=== PATIENT | female | born 1960 | race Caucasian/White ===

== ENCOUNTER 2017-04-30 09:16 | Outpatient (CLI) | payer OTHER | END 2017-04-30 09:17 | disposition home or self-care (01) | LOC: LABBT 09:16 | PROVIDERS: ATTEND Neurological Surgery | DX: Z01.818 Encounter for other preprocedural examination (principal); M54.16 Radiculopathy, lumbar region | CPT/HCPCS: 93005; 93010 ==

== ENCOUNTER 2017-05-05 05:36 | Day surgery (SDC) | payer OTHER ==
[2017-04-30 09:36] VITALS: BMI 31.8
[2017-05-05] MEDS ORDERED: Fentanyl 250 MCG/5 ML VIAL ONE (06:07)
[2017-05-05] MEDS ORDERED: Midazolam HCl 2 mg/2 ml Vial ONE ×2 (06:07→06:32)
[2017-05-05] MEDS ORDERED: Thrombin 5000 UNITS/5 ML VIAL ONE (06:18)
[2017-05-05] MEDS ORDERED: Lidocaine 1% PF 5 ML VIAL ONE (07:01)
[2017-05-05] MEDS ORDERED: Succinylcholine Chloride 20 MG/ML 10 ml SYRINGE FS ONE (07:01)
[2017-05-05] MEDS ORDERED: Propofol 200 MG/20 ML VIAL ONE (07:01)
[2017-05-05] MEDS ORDERED: Glycopyrrolate 0.2 MG/ML 5 ML SYRINGE ONE (07:01)
[2017-05-05] MEDS ORDERED: ePHEDrine/0.9% NaCl/PF SYRINGE 50 mg/10 ml ONE (07:01)
[2017-05-05] MEDS ORDERED: PHENYLEPHRINE-NS 100 MCG/ML 10 ML SYRINGE ONE (07:01)
[2017-05-05] MEDS ORDERED: Albuterol Sulfate 2.5 mg/3 ml Neb NEB PRN (07:33)
[2017-05-05] MEDS ORDERED: Ondansetron HCl/PF 4 MG/2 ML Vial IVP PRN (07:33)
[2017-05-05] MEDS ORDERED: Promethazine HCl 25 MG/ML VIAL SLOW IVP PRN (07:33)
[2017-05-05] MEDS ORDERED: Meperidine HCl/PF 25 MG/ML VIAL SLOW IVP PRN (07:33)
[2017-05-05] MEDS ORDERED: Bupivacaine PF 0.5% 30 ML VIAL ONE (07:37)
[2017-05-05] MEDS ORDERED: Fentanyl 100 MCG/2 ML VIAL ONE ×2 (08:27→08:43)
[2017-05-05] MEDS ORDERED: diphenhydrAMINE HCl 50 MG/ML 1 ML VIAL ONE (09:17)
--- NOTE | 2017-05-05 10:27 | OP ---
DATE OF PROCEDURE: 05/05/2017 SURGEON: Saroj Cartagena MD AUTOMATIC RIVETING MACHINE OPERATOR: Vladimir Christianson PA-C INDICATION: Pain. DIAGNOSIS: Lumbar stenosis. PROCEDURE: L4-5 lumbar decompression. ANESTHESIA: General. TECHNIQUE: The patient was brought into the operating room and placed under general anesthesia. Sh e was flipped from a supine to a prone position on the operating room table. A linear incision was planned over the L4-L5 segment. After prepping and draping and after an appropriate operative pause , the incision was created. Soft tissues were swept away from midline. A self-retaining retractor was placed in the wound for optimal exposure. After confirming the appropriate level with C-arm flu oroscopy, an Adson rongeur was used to remove the spinous process along the inferior aspect of L4 an d the superior aspect of L5. High-speed cutting drill bit was then used to perform a laminectomy to decompress the central canal as well as lateral recesses. After complete decompression, the wound was irrigated. Hemostasis was maintained throughout. The wound was then closed in anatomic layers and a pressure dressing was applied. There were no known procedural complications.
== END 2017-05-05 10:33 | disposition home or self-care (01) ==
LOC: SDC 05:36
PROVIDERS: ATTEND Neurological Surgery
PROC: 00NY0ZZ Release Lumbar Spinal Cord, Open Approach (ICD-10-PCS; principal; 2017-05-05)
DX: M48.061 Spinal stenosis, lumbar region without neurogenic claudication (principal); M54.16 Radiculopathy, lumbar region; F17.200 Nicotine dependence, unspecified, uncomplicated; G47.33 Obstructive sleep apnea (adult) (pediatric); Z79.899 Other long term (current) drug therapy; Z88.4 Allergy status to anesthetic agent; Z88.5 Allergy status to narcotic agent; Z98.51 Tubal ligation status; Z90.49 Acquired absence of other specified parts of digestive tract; Z98.890 Other specified postprocedural states; Z86.19 Personal history of other infectious and parasitic diseases; Z80.9 Family history of malignant neoplasm, unspecified
CPT/HCPCS: 76001; 96374; J1200; J2001; J2250; J2704; J3010; S0020

== ENCOUNTER 2017-06-09 15:39 | Emergency (ER) | payer OTHER ==
--- NOTE | 2017-06-09 16:10 | RAD ---
RIGHT HAND 3 VIEWS: Date: 06/09/17 HISTORY: 56-year-old female with right hand pain following an injury. FINDINGS: No fracture, dislocation, or other acute process. Mild degenerative changes. IMPRESSION: Mild degenerative changes without acute fracture. POS: [facility]
[2017-06-09] MEDS ORDERED: Ketorolac Tromethamine 30 MG/ML VIAL ONE (17:53)
== END 2017-06-09 18:22 | disposition home or self-care (01) ==
LOC: ERS 15:39
DX: S60.221A Contusion of right hand, initial encounter (principal); F31.9 Bipolar disorder, unspecified; F17.210 Nicotine dependence, cigarettes, uncomplicated; I10 Essential (primary) hypertension; W20.8XXA Other cause of strike by thrown, projected or falling object, initial encounter
CPT/HCPCS: 96372; J1885

== ENCOUNTER 2017-08-25 09:45 | Emergency (ER) | payer OTHER ==
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
[2017-08-25] MEDS ORDERED: Ketorolac Tromethamine 30 MG/ML VIAL ONE (13:33)
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
== END 2017-08-25 14:18 | disposition home or self-care (01) ==
LOC: ERS 09:45
DX: M77.01 Medial epicondylitis, right elbow (principal); I10 Essential (primary) hypertension; F31.9 Bipolar disorder, unspecified; F17.210 Nicotine dependence, cigarettes, uncomplicated
CPT/HCPCS: 96372; J1885

== ENCOUNTER 2017-09-05 07:26 | Outpatient (CLI) | payer OTHER ==
--- NOTE | 2017-09-05 12:11 | MRI ---
MRI LUMBAR SPINE WITH AND WITHOUT CONTRAST: Date: 09/05/17 HISTORY: Previous lumbar surgery. Lumbar radiculopathy. Left leg pain. COMPARISON: None. TECHNIQUE: MRI lumbar spine is performed without intravenous Gadolinium administration. Multisequential, multipl eduardo imaging is performed. FINDINGS: There is appropriate T1 marrow signal intensity in the lumbar vertebra. Lumbar spine vertebral body h eight is maintained. There is no fracture. No significant STIR hyperintensity to suggest edema or lig amentous injury. There are Type I Modic changes at the L5-S1 level. There is symmetric signal intensity of the psoas muscles. Appropriate signal intensity of the visuali zed solid organs. Conus medullaris terminates at the inferior aspect of T12. There is no pathologic enhancement of the vertebral bodies. No abnormal enhancement within the thecal sac, including the cauda equina and conus medullaris. T12-L1: Adequate disc hydration. No significant central canal stenosis or foraminal narrowing. L1-L2: Desiccation with mild loss of disc space height. There is a T2 and STIR hyperintensity with associate d enhancement along the right paracentral aspect of the disc space suggesting a small annular fissure . Associated minimal disc bulge. Overall, minimal central canal stenosis. Left and right neural radha lizette are patent. L2-L3: Desiccation with mild loss of disc space height. Generalized disc bulge with a minimal central compon ent. Mild central canal stenosis. Bilaterally, neural foramina are patent. L3-L4: Desiccation with a generalized disc bulge. Minimal posterior element hypertrophy. Mild central canal stenosis. Mild to moderate right and moderate left foraminal narrowing. L4-L5: Posterior decompressive laminectomy defect. Enhancing scar tissue at the laminectomy site. Scar tissu e is noted on the left and right aspect of the thecal sac. Overall, there is mild central canal steno sis. There is a T2 and STIR hyperintensity with associated enhancement along the central aspect of th e disc suggesting a small annular fissure. Moderate bilateral foraminal narrowing. L5-S1: Posterior decompressive laminectomy defect. There is a central, right subarticular disc protrusion. D isc material abuts, but does not obscure the traversing right S1 nerve root. Overall, mild central ca nal stenosis. Moderate to severe bilateral foraminal narrowing. IMPRESSION: 1. Postsurgical changes and degenerative changes of lumbar spine as above. There is mass effect with out obscuration of the traversing right S1 nerve root secondary to disc material. 2. Annular fissures at multiple levels. POS: [facility]
== END 2017-09-05 07:27 | disposition home or self-care (01) ==
LOC: MRI 07:26
PROVIDERS: ATTEND Nurse Practitioner Family
DX: M47.26 Other spondylosis with radiculopathy, lumbar region (principal); Z98.1 Arthrodesis status
CPT/HCPCS: 72158

== ENCOUNTER 2017-09-27 03:58 | Emergency (ER) | payer OTHER ==
[2017-09-27] MEDS ORDERED: Morphine 4 MG/ML VIAL ONE (04:33)
== END 2017-09-27 08:35 | disposition home or self-care (01) ==
LOC: ERS 03:58
DX: M54.12 Radiculopathy, cervical region (principal); I10 Essential (primary) hypertension; F31.9 Bipolar disorder, unspecified; F17.210 Nicotine dependence, cigarettes, uncomplicated
CPT/HCPCS: 93005; 96372; J2270

== ENCOUNTER 2018-01-09 07:04 | Outpatient (CLI) | payer OTHER | END 2018-01-09 07:05 | disposition home or self-care (01) | LOC: BICULT 07:04 | PROVIDERS: ATTEND Internal Medicine Gastroenterology | DX: K59.00 Constipation, unspecified (principal); K21.0 Gastro-esophageal reflux disease with esophagitis; R14.0 Abdominal distension (gaseous); Z86.19 Personal history of other infectious and parasitic diseases; Z86.010 Personal history of colon polyps; Z90.49 Acquired absence of other specified parts of digestive tract | CPT/HCPCS: 76705 ==

== ENCOUNTER 2018-02-10 14:26 | Outpatient (CLI) | payer OTHER | END 2018-02-10 14:27 | disposition home or self-care (01) | LOC: BICCT 14:26 | PROVIDERS: ATTEND Neurological Surgery | DX: M54.16 Radiculopathy, lumbar region (principal); M54.12 Radiculopathy, cervical region; M47.897 Other spondylosis, lumbosacral region; M51.27 Other intervertebral disc displacement, lumbosacral region | CPT/HCPCS: 72131; 72141 ==

== ENCOUNTER 2018-03-02 07:59 | Outpatient (CLI) | payer OTHER ==
--- NOTE | 2018-03-03 06:54 | EKG ---
Test Reason : Blood Pressure : / mmHG Vent. Rate : 085 BPM Atrial Rate : 085 BPM P-R Int : 184 ms QRS Dur : 094 ms QT Int : 396 ms P-R-T Axes : 073 063 063 degrees QTc Int : 471 ms Normal sinus rhythm Incomplete right bundle branch block Cannot rule out Anterior infarct , age undetermined (Doubtful) Abnormal ECG When compared with ECG of 27-SEP-2017 04:14, Minimal criteria for Anterior infarct are now Present Confirmed by LISS OLEARY ([id number]) on 03/03/2018 6:54:14 AM Referred By: ROEL Confirmed By:LISS OLEARY
== END 2018-03-02 08:00 | disposition home or self-care (01) ==
LOC: LABBT 07:59
PROVIDERS: ATTEND Neurological Surgery
DX: Z01.818 Encounter for other preprocedural examination (principal); M51.16 Intervertebral disc disorders with radiculopathy, lumbar region; M54.5 Low back pain
CPT/HCPCS: 93005; 93010

== ENCOUNTER 2018-03-09 05:28 | Day surgery (SDC) | payer OTHER ==
[2018-03-02 08:33] VITALS: BMI 31.5
--- NOTE | 2018-03-09 00:53 | HP ---
HISTORY OF PRESENT ILLNESS: Ms. Macdonald is a 57-year-old woman known to us for previous lumbar decompr ession back at the end of last year 2017, who returns now with recurrence of significant back pain an d bilateral lower extremity S1 and partial L5 pains. She has treated this conservatively for quite s ome time even after recurrence and has reached a point of exaggeration and wishes to move forward wit h surgery. She has a new MRI from [facility] as well as a CAT scan that reveals grade 1 spondyl olisthesis of L5 upon S1 resulting in severe foraminal stenosis bilaterally at L5 that likely fit her symptoms. PAST MEDICAL HISTORY: Includes hypertension, anxiety, gastroesophageal reflux disease, chronic pain. CURRENT MEDICATIONS: Colace, cetirizine, oxcarbazepine, Robaxin, ibuprofen, lisinopril, bupropion, p antoprazole, and chlorpromazine. ALLERGIES: TRAMADOL. PAST SURGICAL HISTORY: Cholecystectomy, appendectomy, tubal ligation, herniorrhaphy, colonicpolypect judson. PHYSICAL EXAMINATION: The patient is alert and oriented x3. She is distressed and in obvious pain. In the exam room, her gait is severely antalgic. Lower extremity motor exam is normal. Bilateral s traight leg raise is positive. ASSESSMENT: Lumbar spondylolisthesis with lumbar radiculopathy. PLAN: Dr. Cartagena met with the patient, reviewed imaging and ultimately advocated for bilateral L5 fac etectomies with instrumentation and fusion at L5-S1. He explained to the patient the risks, benefits , and alternatives of the procedure. The patient expressed understanding and would like to move forw negra with surgery as discussed. I do believe the patient is mentally competent and capable of making medical decisions for herself and we will move forward with surgery as planned. Vladimir Christianson PA-C, dictating under Saroj Cartagena M.D.
[2018-03-09] MEDS ORDERED: Thrombin 5000 UNITS/5 ML VIAL ONE (06:23)
[2018-03-09] MEDS ORDERED: Bupivacaine HCl 0.5%/Epinephrine 1:200,000/PF 30 ml Vial ONE (06:23)
[2018-03-09] MEDS ORDERED: CEFAZOLIN/Water 2 GM/20 ML SYRINGE ONE (06:31)
[2018-03-09] MEDS ORDERED: Ketamine 50 MG/ML VIAL ONE (07:07)
[2018-03-09] MEDS ORDERED: Fentanyl 100 MCG/2 ML VIAL ONE ×3 (07:51→11:07)
[2018-03-09] MEDS ORDERED: HYDROmorphone 2 MG/ML VIAL ONE (10:09)
--- NOTE | 2018-03-09 10:20 | OP ---
DATE OF PROCEDURE: 03/09/2018 SURGEON: Saroj Cartagena M.D. E MERCHANT: Vladimir Christianson PA-C INDICATION: Pain. DIAGNOSES: Lumbar stenosis, lumbar radiculopathy, back pain. PROCEDURE: Reoperation, bilateral L5 facetectomies, bilateral L5-S1 posterolateral instrumented fusi on, placement of allograft, placement of autograft. ANESTHESIA: General. TECHNIQUE: The patient was brought into the operating room and placed under general anesthesia. She was flipped from a supine to prone position on the operating room table. A linear incision was plan alexandra at the location of her prior operative site. After prepping and draping and after an appropriate operative pause, the incision was created. The soft tissues were swept away from midline. Self-ret aining retractors were placed in the wound for optimal exposure. After confirming the appropriate le barbara with C-arm fluoroscopy, we spent an extensive amount of time dissecting through scar secondary to this being a reoperation. As such, a surgical modifier will be applied throughout all CPT codes. A fter identifying the bone defect from the patient's prior operation, additional laminectomy and facet ectomy were performed at the L5-S1 region. After completely decompressing these areas and identifyin g the L5 and S1 pedicle screws were placed with the aid of C-arm fluoroscopy. An intraoperative 3D C T scan was performed to confirm appropriate placement of hardware. Rods were then placed across the screw heads and final tightened. The wound was then irrigated. Hemostasis was maintained throughout . The wound was then closed in anatomic layers and a pressure dressing was applied. There were no k nown procedural complications.
[2018-03-09] MEDS ORDERED: PROPOFOL 200 MG/20 ML VIAL ONE (12:00)
[2018-03-09] MEDS ORDERED: Lidocaine 1% PF 5 ML VIAL ONE (12:00)
[2018-03-09] MEDS ORDERED: Dexamethasone 20 MG/5 ML VIAL ONE (12:00)
[2018-03-09] MEDS ORDERED: Ketorolac Tromethamine 30 MG/ML VIAL ONE (12:00)
[2018-03-09] MEDS ORDERED: Glycopyrrolate 0.2 MG/ML 5 ML SYRINGE ONE (12:00)
[2018-03-09] MEDS ORDERED: Ondansetron HCl/PF 4 MG/2 ML Vial ONE (12:00)
== END 2018-03-09 13:10 | disposition home or self-care (01) ==
LOC: SDC 05:28
PROVIDERS: ATTEND Neurological Surgery
PROC: 01NB0ZZ Release Lumbar Nerve, Open Approach (ICD-10-PCS; principal; 2018-03-09)
PROC: 0SG30J1 Fusion of Lumbosacral Joint with Synthetic Substitute, Posterior Approach, Posterior Column, Open Approach (ICD-10-PCS; principal; 2018-03-09)
DX: M48.061 Spinal stenosis, lumbar region without neurogenic claudication (principal); M54.16 Radiculopathy, lumbar region; M43.16 Spondylolisthesis, lumbar region; M54.12 Radiculopathy, cervical region; I10 Essential (primary) hypertension; F41.9 Anxiety disorder, unspecified; K21.9 Gastro-esophageal reflux disease without esophagitis; F31.9 Bipolar disorder, unspecified; Z79.899 Other long term (current) drug therapy; Z88.5 Allergy status to narcotic agent; Z88.8 Allergy status to other drugs, medicaments and biological substances
CPT/HCPCS: 76001; 96374; C1713; J0670; J1170; J3010

== ENCOUNTER 2018-04-14 10:44 | Emergency (ER) | payer OTHER ==
[2018-04-14] MEDS ORDERED: Morphine 4 MG/ML VIAL ONE (11:27)
--- NOTE | 2018-04-14 12:19 | RAD ---
THREE VIEWS LUMBAR SPINE: Comparison: 04-11-16 History: Pain. FINDINGS: There are bilateral transpedicular screws at L5 and S1. There is no perihardware lucency. There is va cuum disc phenomenon at L5-S1. There is 4 mm anterolisthesis of L5 upon S1. Lumbar spine vertebral body height is maintained. No fracture. IMPRESSION: 1. Grade I anterolisthesis of L5 upon S1. Vacuum disc phenomenon at L5-S1. 2. Uncomplicated lumbar fusion hardware. POS: [facility]
== END 2018-04-14 12:32 | disposition home or self-care (01) ==
LOC: ERS 10:44
DX: M54.5 Low back pain (principal); I10 Essential (primary) hypertension; F31.9 Bipolar disorder, unspecified; F17.210 Nicotine dependence, cigarettes, uncomplicated; Z79.899 Other long term (current) drug therapy
CPT/HCPCS: 72100; 96372; J2270

== ENCOUNTER 2018-05-15 06:23 | Day surgery (SDC) | payer OTHER ==
[2018-05-14 14:18] VITALS: BMI 31.6
--- NOTE | 2018-05-14 22:59 | HP ---
HISTORY OF PRESENT ILLNESS: Ms. Macdonald is a 57-year-old woman known to us for previous lumbar decompr ession in the most recently lumbar fusion who returns now to discuss left-sided C6 pattern of pain th at she has had for some time now and hopes to move forward with some type of surgery to help relieve this. She does have an MRI from [facility] that reveals significant foraminal stenosis bilatera lly at C5-C6 that would match her symptoms quite well. She has treated this in the past with injecti ons, medications, and therapy with limited relief. PAST MEDICAL HISTORY: Hypertension, anxiety, gastroesophageal reflux disease, chronic pain. MEDICATIONS: Colace, cetirizine, carbamazepine, Robaxin, ibuprofen, lisinopril, bupropion, brooke toprazole, . ALLERGIES: TRAMADOL. PAST SURGICAL HISTORY: Cholecystectomy, appendectomy, tubal ligation, herniorrhaphy, colonic polypec deidre, lumbar fusion, and lumbar decompression. PHYSICAL EXAMINATION: The patient is alert and oriented x3. Cervical range of motion limited to the left. ASSESSMENT: Cervical radiculopathy. PLAN: Dr. Cartagena met with the patient, reviewed imaging and advocated for a C5-C6 ACDF. He explained to the patient the risks, benefits, and alternatives of the procedure. The patient expressed unders tanding and would like to move forward with surgery as discussed. I do believe the patient is mental ly competent and capable of making medical decisions for herself and we will move forward with surger y as planned. Vladimir Christianson PA-C, dictating for Saroj Cartagena M.D.
[2018-05-15] MEDS ORDERED: Thrombin 5000 UNITS/5 ML VIAL ONE (08:11)
[2018-05-15] MEDS ORDERED: CEFAZOLIN/Water 2 GM/20 ML SYRINGE ONE ×2 (08:17→10:52)
[2018-05-15] MEDS ORDERED: Midazolam HCl 2 mg/2 ml Vial ONE (08:18)
[2018-05-15] MEDS ORDERED: Fentanyl 100 MCG/2 ML VIAL ONE (08:25)
[2018-05-15] MEDS ORDERED: HYDROcodone/Acetaminophen 5/325 mg Tablet ONE (10:52)
--- NOTE | 2018-05-15 11:38 | OP ---
DATE OF PROCEDURE: 05/15/2018 SURGEON: Saroj Cartagena M.D. PLUMBING INSTALLER: Vladimir Christianson PA-C. INDICATION: Pain. DIAGNOSIS: Cervical radiculopathy. PROCEDURE: Anterior cervical discectomy and fusion, C5-6. ANESTHESIA: General. TECHNIQUE: The patient was brought into the operating room and placed under general anesthesia. She was placed on the table in a supine position. A transverse incision was planned over the lateral as pect of the neck on the right. After prepping and draping and after an appropriate operative pause, the incision was created. The underlying platysma muscles identified and incised. A blunt tissue pl ane anterior to the sternocleidomastoid muscle was used to gain access to the prevertebral space. Se lf-retaining retractors were placed in the wound for optimal exposure. After confirming the appropri ate level with C-arm fluoroscopy, an annulotomy was performed in the C5-6 disk space. All disk mater ial as well as anterior and posterior osteophytes were removed. After complete decompression, a 6 mm lordotic PEEK cage packed with allograft and autograft material was placed in the interbody space. An anterior cervical plate was then fashioned in front of the spine and secured with a total of 4 fix ed screws. Midline and lateral structures were inspected and found to be free from significant traum a. The wound was irrigated. Hemostasis was maintained throughout. The wound was then closed in elda tomic layers and a pressure dressing was applied. There were no known procedural complications.
[2018-05-15] MEDS ORDERED: Glycopyrrolate 0.2 MG/ML 5 ML SYRINGE ONE (13:23)
[2018-05-15] MEDS ORDERED: ePHEDrine/0.9% NaCl/PF SYRINGE 50 mg/10 ml ONE (13:23)
[2018-05-15] MEDS ORDERED: PHENYLEPHRINE-NS 100 MCG/ML 10 ML SYRINGE ONE (13:23)
[2018-05-15] MEDS ORDERED: Dexamethasone 20 MG/5 ML VIAL ONE (13:23)
[2018-05-15] MEDS ORDERED: Ondansetron PF 4 MG/2 ML Vial ONE (13:23)
[2018-05-15] MEDS ORDERED: Lidocaine 1% PF 5 ML VIAL ONE (13:23)
[2018-05-15] MEDS ORDERED: PROPOFOL 200 MG/20 ML VIAL ONE (13:23)
== END 2018-05-15 11:15 | disposition home or self-care (01) ==
LOC: SDC 06:23
PROVIDERS: ATTEND Neurological Surgery
PROC: 0RG10A0 Fusion of Cervical Vertebral Joint with Interbody Fusion Device, Anterior Approach, Anterior Column, Open Approach (ICD-10-PCS; principal; 2018-05-15)
PROC: 0RT30ZZ Resection of Cervical Vertebral Disc, Open Approach (ICD-10-PCS; principal; 2018-05-15)
DX: M54.12 Radiculopathy, cervical region (principal); M48.02 Spinal stenosis, cervical region; I10 Essential (primary) hypertension; F41.9 Anxiety disorder, unspecified; K21.9 Gastro-esophageal reflux disease without esophagitis; Z79.899 Other long term (current) drug therapy; Z88.8 Allergy status to other drugs, medicaments and biological substances; Z98.1 Arthrodesis status; Z98.890 Other specified postprocedural states
CPT/HCPCS: 76001; C1713; C1776; J2250; J3010

== ENCOUNTER 2018-05-20 11:10 | Emergency (ER) | payer OTHER ==
[2018-05-20] MEDS ORDERED: Morphine 10 MG/ML VIAL ONE (12:02)
== END 2018-05-20 13:03 | disposition home or self-care (01) ==
LOC: ERS 11:10
DX: G89.18 Other acute postprocedural pain (principal); M19.90 Unspecified osteoarthritis, unspecified site; I10 Essential (primary) hypertension; F31.9 Bipolar disorder, unspecified; F17.210 Nicotine dependence, cigarettes, uncomplicated; Z79.899 Other long term (current) drug therapy; Z79.1 Long term (current) use of non-steroidal anti-inflammatories (NSAID)
CPT/HCPCS: 96372; J2270

== ENCOUNTER 2018-06-12 07:52 | Emergency (ER) | payer OTHER ==
[2018-06-12 08:42] LABS: Bilirubin Negative (Negative); Blood, Urine Moderate (Negative); Clarity CLOUDY (Clear); Glucose, Urine (Dipstick) Negative (Negative); Leukocyte Large (Negative); Nitrite Positive (Negative); Protein, Urine (Dipstick) 30 mg/dL (Neg-Trace); Specific Gravity, Urine 1.018 (1.002-1.036); Urobilinogen 0.2 mg/dL (0.2-1.0)
[2018-06-12 08:44] LABS: Bacteria/HPF 4+ HPF (None Seen); Hyaline Casts/LPF 0-3 HYALINE CAST LPF (0-3 Hyaline); Pathc Cast-AUWi Flag 0.72 (0-2.49); Yeast-AUWi Flag 23.9 (0-25.0)
[2018-06-12 08:48] LABS: #Basophils 0.1 thou/uL (0.0-0.2); #Eosinphils 0.3 thou/uL (0.0-0.7); #Lymphocytes 2.4 thou/uL (1.20-3.40); #Monocytes 0.8 thou/uL (0.11-0.59); #Neutrophils 6.6 thou/uL (1.40-6.50); %Eosinophils 2.5 % (0.0-10.0); %Lymphocytes 23.7 % (21.0-51.0); %Monocytes 8.1 % (0.0-10.0); %Neutrophils 64.8 % (42.0-75.0); Hemoglobin 16.2 g/dL (12.0-16.0); Mean Corpuscular HGB CONC 32.5 g/dL (32.0-36.0); Mean Corpuscular Hemoglobin 31.1 pg (27.0-31.0); Mean Corpuscular Volume 95.7 fL (78.0-98.0); Mean Platelet Volume 5.9 fL (7.4-10.4); Platelet Count 448 thou/uL (130-400); RBC Distribution Width 12.7 % (11.5-14.5); Red Blood Cell (RBC) Count 5.23 mill/uL (4.20-5.40); White Blood Cell (WBC) Count 10.2 thou/uL (4.8-10.8)
[2018-06-12 09:10] LABS: ALT (SGPT) 10 U/L (8-55); AST (SGOT) 12 U/L (5-34); Alkaline Phosphatase 105 U/L (40-150); Anion Gap 14 mmol/L (10-20); BUN (Urea Nitrogen) 13 mg/dL (9.8-20.1); Bilirubin, Total 0.3 mg/dL (0.2-1.2); Calc. Creatinine Clearance 0 mL/min (70-130); Carbon Dioxide 22 mmol/L (22-29); Chloride 104 mmol/L (98-107); Estimated GFR-MDRD 87; Globulin 3.8 g/dL (2.4-3.5); Glucose 111 mg/dL (70-105); Potassium 4.2 mmol/L (3.5-5.1); Protein, Total 7.8 g/dL (6.0-8.3); Sodium 136 mmol/L (136-145)
[2018-06-12] MEDS ORDERED: Ketorolac Tromethamine 60 MG/2 ML VIAL ONE (09:22)
[2018-06-12] MEDS ORDERED: Lidocaine 1% PF 5 ML VIAL ONE (09:22)
[2018-06-12] MEDS ORDERED: cefTRIAXone\\ROCEPHIN 1 GM VIAL ONE (09:22)
== END 2018-06-12 09:51 | disposition home or self-care (01) ==
LOC: ERS 07:52 → EEVIPCON 07:52 → ERS 09:51
DX: N39.0 Urinary tract infection, site not specified (principal); I10 Essential (primary) hypertension; F17.210 Nicotine dependence, cigarettes, uncomplicated; Z79.899 Other long term (current) drug therapy
CPT/HCPCS: 36415; 80053; 81003; 81015; 85025; 96372; J0696; J1885; J2001

== ENCOUNTER 2018-07-02 11:01 | Outpatient (CLI) | payer OTHER ==
--- NOTE | 2018-07-02 12:30 | RAD ---
CERVICAL SPINE 3 VIEWS: HISTORY: Followup cervical surgery. FINDINGS: Anterior fusion procedure changes noted. There is an anterior plate and screw transfixing C5-6 with interbody implant. There is a slight posterior subluxation of C5 on C6 measured at 2-3 mm. There is loss of disk space at C6-7 with degenerative change present at this level. The disk spaces above C5 are maintained. IMPRESSION: Postoperative changes at C5-6 and degenerative changes at C6-7 as noted. POS: [facility]
== END 2018-07-02 11:02 | disposition home or self-care (01) ==
LOC: TBSIIMAG 11:01
PROVIDERS: ATTEND Neurological Surgery
DX: M47.22 Other spondylosis with radiculopathy, cervical region (principal); Z98.1 Arthrodesis status
CPT/HCPCS: 72040

== ENCOUNTER 2019-01-23 08:57 | Emergency (ER) | payer OTHER ==
[2019-01-23] MEDS ORDERED: Acetaminophen 325 MG TAB ONE (09:28)
[2019-01-23] MEDS ORDERED: Ketorolac Tromethamine 30 MG/ML VIAL ONE (09:28)
[2019-01-23] MEDS ORDERED: HYDROcodone/Acetaminophen 5/325 mg Tablet ONE (09:43)
== END 2019-01-23 10:20 | disposition home or self-care (01) ==
LOC: ERS 08:57
DX: M54.5 Low back pain (principal); M19.90 Unspecified osteoarthritis, unspecified site; I10 Essential (primary) hypertension; F31.9 Bipolar disorder, unspecified; Z79.891 Long term (current) use of opiate analgesic; Z79.1 Long term (current) use of non-steroidal anti-inflammatories (NSAID); Z79.899 Other long term (current) drug therapy
CPT/HCPCS: 96372; 99283; J1885

== ENCOUNTER 2019-05-04 09:26 | Emergency (ER) | payer OTHER ==
[2019-05-04] MEDS ORDERED: Ketorolac Tromethamine 30 MG/ML VIAL ONE (10:55)
== END 2019-05-04 11:03 | disposition home or self-care (01) ==
LOC: ERS 09:26
DX: S39.012A Strain of muscle, fascia and tendon of lower back, initial encounter (principal); M19.90 Unspecified osteoarthritis, unspecified site; I10 Essential (primary) hypertension; F31.9 Bipolar disorder, unspecified; F17.210 Nicotine dependence, cigarettes, uncomplicated; Z79.899 Other long term (current) drug therapy; Z76.5 Malingerer [conscious simulation]; X50.9XXA Other and unspecified overexertion or strenuous movements or postures, initial encounter
CPT/HCPCS: 96372; 99283; J1885

== ENCOUNTER 2019-06-19 08:46 | Emergency (ER) | payer OTHER ==
[2019-06-19] MEDS ORDERED: predniSONE 20 MG TAB ONE (09:11)
[2019-06-19] MEDS ORDERED: Ketorolac Tromethamine 30 MG/ML VIAL ONE (09:12)
== END 2019-06-19 09:24 | disposition home or self-care (01) ==
LOC: ERS 08:46
DX: M54.32 Sciatica, left side (principal); I10 Essential (primary) hypertension; M19.90 Unspecified osteoarthritis, unspecified site; F17.210 Nicotine dependence, cigarettes, uncomplicated; Z79.899 Other long term (current) drug therapy
CPT/HCPCS: 96372; 99283; J1885; J7512

== ENCOUNTER 2019-07-28 13:06 | Outpatient (CLI) | payer OTHER ==
--- NOTE | 2019-07-28 15:02 | CT ---
CT LUMBAR SPINE WITHOUT CONTRAST: HISTORY: Low back pain with pain radiating down the left leg to the knee. COMPARISON: None. FINDINGS: Five lumbar type vertebrae. Lumbar spine vertebral body height is maintained. No acute fracture. Ther e appears to be an old fracture involving the posterior right aspect of the L5 vertebral body with the fracture extending into the right lamina. Sclerosis implies a chronic process. The visualized sacrum and bony pelvis are unremarkable. The gallbladder is surgically absent. The visualized solid organs are grossly unremarkable. Atherosclerosis of a nonaneurysmal aorta. No retroperitoneal mass, lymphadenopathy or hematoma. Unremarkable paraspinal muscles with symmetric attenuation. Bilateral transpedicular screws at L5 and S1. No perihardware lucency. SPONDYLOLISTHESIS: L4-L5: 2.2 mm of retrolisthesis. L5-S1: Bilateral pars defects at L5. 7.3 mm of anterolisthesis of L5 upon S1. Limited evaluation of t he contents of the central spinal canal and neural foramina due to technique. T12-L1: No significant central canal stenosis or significant neural foraminal narrowing. L1-L2: Broad-based disc bulge with mild central canal stenosis. Bilaterally the neural foramina are p atent. L2-L3: Broad-based disc bulge results in mild central canal stenosis. Bilaterally the neural foramina are patent. L3-L4: Vacuum disc phenomenon. Broad-based disc bulge. Posterior element hypertrophy result in modera te central canal stenosis. Right neural foramen is mildly narrowed due to disc material. Moderate to severe left foraminal narrowing predominantly due to disc material. The foraminal left L3 nerve ro ot is nearly obscured. L4-L5: Posterior laminectomy defect. Limited evaluation due to beam attenuation artifact. There appea rs to be vacuum disc phenomenon with broad-based disc bulge. At least mild central canal stenosis is suspected. Moderate to severe bilateral foraminal narrowing due to disc material and to lesser ext ent posterior element hypertrophy. L5-S1: Disc desiccation with severe loss of disc space height. Broad-based disc bulge abuts the theca l sac. Disc material appears to encroach upon both subarticular zones with presumed mass effect upon bilateral traversing S1 nerve roots. Mild right and mild to moderate left foraminal narrowing. IMPRESSION 1. Lumbar fusion at L5-S1. There is grade 1 anterolisthesis of L5 upon S1 due to bilateral pars defec ts. 2. Varying degrees of significant central canal stenosis and neural foraminal narrowing as detailed a malaika. 3. Remote fracture along the posterior right aspect of the L5 vertebral body with extension into the right pedicle. Incomplete healing and slightly less than expected sclerosis likely due to persistent motion at the fracture site. Transcribed Date/Time: 07/28/2019 4:02 PM
== END 2019-07-28 13:07 | disposition home or self-care (01) ==
LOC: BICCT 13:06
PROVIDERS: ATTEND Registered Nurse
DX: M53.3 Sacrococcygeal disorders, not elsewhere classified (principal); M15.0 Primary generalized (osteo)arthritis; M43.17 Spondylolisthesis, lumbosacral region; M48.061 Spinal stenosis, lumbar region without neurogenic claudication; M48.07 Spinal stenosis, lumbosacral region; Z98.1 Arthrodesis status
CPT/HCPCS: 72131

== ENCOUNTER 2019-08-13 11:19 | Emergency (ER) | payer OTHER ==
[~2019-08-13 11:19] MED LIST: Iopamidol-370 76% 500 ML 1 ML ONE
[2019-08-13 13:11] LABS: Hemoglobin 15.7 g/dL (12.0-16.0); Mean Corpuscular HGB CONC 32.4 g/dL (32.0-36.0); Mean Corpuscular Hemoglobin 32.2 pg (27.0-31.0); Mean Corpuscular Volume 99.2 fL (78.0-98.0); Mean Platelet Volume 6.2 fL (7.4-10.4); Platelet Count 351 thou/uL (130-400); RBC Distribution Width 12.6 % (11.5-14.5)
[2019-08-13 13:14] LABS: #Basophils 0.1 thou/uL (0.0-0.2); #Eosinphils 0.2 thou/uL (0.0-0.7); #Lymphocytes 2.2 thou/uL (1.20-3.40); #Monocytes 0.6 thou/uL (0.11-0.59); #Neutrophils 5.3 thou/uL (1.40-6.50); %Eosinophils 2.3 % (0.0-10.0); %Lymphocytes 26.4 % (21.0-51.0); %Monocytes 7.4 % (0.0-10.0); %Neutrophils 62.8 % (42.0-75.0); White Blood Cell (WBC) Count 8.4 thou/uL (4.8-10.8)
[2019-08-13 13:32] LABS: ALT (SGPT) 17 U/L (8-55); AST (SGOT) 21 U/L (5-34); Albumin 4.1 g/dL (3.5-5.0); Alkaline Phosphatase 101 U/L (40-110); Anion Gap 12 mmol/L (10-20); BUN (Urea Nitrogen) 14 mg/dL (9.8-20.1); Bilirubin, Total 0.4 mg/dL (0.2-1.2); Calc. Creatinine Clearance 0 mL/min (70-130); Calcium 10.1 mg/dL (7.8-10.44); Carbon Dioxide 27 mmol/L (22-29); Chloride 103 mmol/L (98-107); Estimated GFR-MDRD 86; Globulin 3.6 g/dL (2.4-3.5); Glucose 112 mg/dL (70-105); Potassium 4.6 mmol/L (3.5-5.1); Protein, Total 7.7 g/dL (6.0-8.3); Sodium 137 mmol/L (136-145)
--- NOTE | 2019-08-13 13:55 | CT ---
Exam: Postcontrast soft tissue neck CT HISTORY: Left neck swelling, progressively worsening. COMPARISON: None FINDINGS: Visualized brain parenchyma: No abnormal enhancement Orbits: Visualized orbits are unremarkable. Visualized globes are intact. Symmetric attenuation the o ptic nerves and ocular rectus muscles Paranasal sinuses: Adequate aeration Aerodigestive tract: Patent. No obvious masses in the oral cavity. Midline fatty raphae of the tongue preserved. Epiglottis has a normal caliber. Preepiglottic fat is preserved Larynx: The supraglottic, glottic and subglottic larynx of appropriate mucosal appearance. No evidenc e of stenosis. Paraspinal muscles: Symmetric attenuation of the cleidomastoid muscles and paraspinal muscles Cervical spine: Cervical fusion at C5-C6. No perihardware lucency. Varying degrees of central canal s tenosis and neural foraminal narrowing due to degenerative change. Technique limits evaluation. Symmetric attenuation of the parotid and submandibular glands. Enlarged heterogeneous nodule in the r ight thyroid lobe, measuring 1.3 x 1.3 cm. Grossly the great vessels of the neck are patent Mediastinum: Multiple enlarged and necrotic AP window and prevascular lymph nodes. [facility] pre vascular lymph node measures 1.9 x 2.7 cm. Additional necrotic lymph nodes are noted in the visualized upper mediastinum LUNGS: There are patchy nodular densities in the visualized lung parenchyma, worse for atypical infec tion. Bilateral apical emphysematous changes are noted. Neck lymph nodes: No significant lymphadenopathy in the right neck. There are multiple enlarged left level 4 and supraclavicular lymph nodes. [facility] left level 4 lymph nodes measure 2.2 x 2.4 and 2.6 x 2.4 cm. Enlarged, necrotic left periclavicular lymph nodes measure 3.2 x 2.2 cm. Additional . Left clavicular lymph nodes, measuring 4.3 x 2.4 cm. IMPRESSION: 1.Multiple enlarged necrotic lymph nodes in the left neck and visualized upper chest. Necrotic lympha denopathy may be reactive changes from an infectious or inflammatory process or possibly due to metastasis disease from an unknown primary. Necrotic lymph nodes in the neck are often associated wit h the squamous cell carcinoma of the aerodigestive tract. 2. Nodularity of the visualized lung parenchyma may be due to atypical infection. Consider postcontra st chest, abdomen, pelvis CT 3. Heterogeneous nodule of the right thyroid lobe, incompletely evaluated. Nonemergent thyroid ultras ound.
[2019-08-13] MEDS ORDERED: Morphine 4 MG/ML VIAL ONE (14:32)
[2019-08-13] MEDS ORDERED: Ondansetron PF 4 MG/2 ML Vial ONE (14:32)
[2019-08-13] MEDS ORDERED: Ketorolac Tromethamine 30 MG/ML VIAL ONE (15:07)
== END 2019-08-13 16:06 | disposition home or self-care (01) ==
LOC: ERS 11:19
DX: I89.8 Other specified noninfective disorders of lymphatic vessels and lymph nodes (principal); I10 Essential (primary) hypertension; M19.90 Unspecified osteoarthritis, unspecified site; F31.9 Bipolar disorder, unspecified; Z87.891 Personal history of nicotine dependence; Z79.899 Other long term (current) drug therapy
CPT/HCPCS: 36415; 70491; 80053; 85025; 96374; J1885; J2270; J2405; Q9967

== ENCOUNTER 2019-08-25 09:04 | Outpatient (CLI) | payer OTHER ==
--- NOTE | 2019-08-25 11:37 | MRI ---
Exam: LUMBAR SPINE MRI WITH AND WITHOUT CONTRAST: DATE: 08/25/2019 COMPARISON: 09/05/2017. HISTORY: Lumbar radiculopathy. CORRELATION: CT lumbar spine 07/28/2019, lumbar spine CT performed at [facility] 02/10/2018. FINDINGS: Appropriate T1 marrow signal intensity of the lumbar vertebra. Lumbar spine vertebral body heights ar e essentially maintained. There is no evidence of an acute fracture. There is irregularity involving the superior and inferior endplate of T12, superior endplate of L1, superior endplate of L2 , superior endplate of L3 likely representing Schmorl's nodes. No significant edema. No retropulsion. There is type I Modic change along the right aspect of the L4-L5 disc space. Spondylolisthesis: There is grade 1 retrolisthesis of L4 upon L5 and grade 1 anterolisthesis of L5 up on S1. Refer to CT report for further detail. Appropriate signal intensity in visualized paraspinal muscles. Appropriate signal intensity of solid organs. Conus medullaris terminates at the T12-L1 disc space. T12-L1: Disc desiccation without significant loss of disc space height. No significant central canal stenosis or neural foraminal narrowing. L1-L2: Disc desiccation with mild loss of disc space height. Minimal right paracentral disc bulge. No significant central canal stenosis or significant neural foraminal narrowing. L2-L3: Disc desiccation with mild loss of disc space height. There is a broad-based disc bulge with a superior and inferior disc extrusion. There is mild to moderate central canal stenosis. Bilaterally, the neural foramina are patent. L3-L4: Disc desiccation with moderate loss of disc space height. Broad-based disc bulge with inferior and superior disc extrusion. Ligament flavum thickening and facet hypertrophy are present. There is moderate central canal stenosis. Mild right neural foraminal narrowing. Moderate left neural radha inal narrowing due to disc material. L4-L5: Posterior laminectomy defect. Broad-based disc bulge abuts the thecal sac. There is mild centr al canal stenosis. Enhancing scar tissue at the laminectomy defect site is redemonstrated. There is a T2 hyperintensity adjacent to the right facet joint, measuring 0.5 x 0.4 cm. There is mass effect u ivette the right aspect of the thecal sac. There is no evidence of associated enhancement. The periphery does demonstrate subtle increased signal intensity on the postcontrast images. Imaging lokesh acteristics are favored to be due to a synovial cyst, not appreciated on the previous examination. Moderate bilateral neural foraminal narrowing. L5-S1: Posterior laminectomy defect. Disc desiccation with moderate to severe loss of disc space heig ht. No significant central canal stenosis. Moderate right and left foraminal narrowing. Enhancing scar tissue at the laminectomy defect site. No significant edema along the posterior right aspect of the L5 vertebral body, just adjacent to the lamina. Imaging features on the current study support the chronic nature of the fracture as reported on the CT examination. IMPRESSION: 1. Lumbar fusion as described above. There are varying degrees of central canal stenosis and neural f oraminal narrowing as detailed above. 2. Spondylolisthesis as detailed above. Transcribed Date/Time: 08/25/2019 11:56 AM
[2019-08-25] MEDS ORDERED: Magnevist 469MG/ML 20 ML VIAL ONE (13:01)
== END 2019-08-25 09:05 | disposition home or self-care (01) ==
LOC: BICMRI 09:04
PROVIDERS: ATTEND Neurological Surgery
DX: M54.16 Radiculopathy, lumbar region (principal); M43.16 Spondylolisthesis, lumbar region; M48.061 Spinal stenosis, lumbar region without neurogenic claudication; Z98.1 Arthrodesis status
CPT/HCPCS: 72158; A9579

== ENCOUNTER 2019-09-11 11:00 | Inpatient (IN) | payer OTHER ==
[2019-09-11] MEDS ORDERED: Iopamidol-370 76% 500 ML 1 ML ONE (11:28)
[2019-09-11 11:41] LABS: #Eosinphils 0.1 thou/uL (0.0-0.7); #Lymphocytes 1.4 thou/uL (1.20-3.40); #Monocytes 0.6 thou/uL (0.11-0.59); %Basophils 0.4 % (0.0-1.0); %Eosinophils 1.3 % (0.0-10.0); %Lymphocytes 15.1 % (21.0-51.0); %Monocytes 6.3 % (0.0-10.0); %Neutrophils 76.8 % (42.0-75.0); Hemoglobin 15.9 g/dL (12.0-16.0); Mean Corpuscular HGB CONC 33.8 g/dL (32.0-36.0); Mean Corpuscular Hemoglobin 34.6 pg (27.0-31.0); Mean Platelet Volume 6.1 fL (7.4-10.4); Platelet Count 404 thou/uL (130-400); RBC Distribution Width 12.5 % (11.5-14.5); Red Blood Cell (RBC) Count 4.58 mill/uL (4.20-5.40); White Blood Cell (WBC) Count 9.2 thou/uL (4.8-10.8)
[2019-09-11 12:02] LABS: Bacteria/HPF None Seen HPF (None Seen); Bilirubin Negative (Negative); Blood, Urine Negative (Negative); Clarity Clear (Clear); Glucose, Urine (Dipstick) Normal (Negative); Leukocyte Negative Leu/uL (Negative); Mucous/LPF 2+ LPF (<2+); Nitrite Negative (Negative); Protein, Urine (Dipstick) 70 mg/dL (Neg-Trace); Urobilinogen 3 mg/dL (Less than 2); WBC/HPF 0-3 HPF (0-3)
[2019-09-11] MEDS ORDERED: Morphine 4 MG/ML VIAL ONE (12:02)
[2019-09-11] MEDS ORDERED: Ondansetron PF 4 MG/2 ML Vial ONE (12:02)
[2019-09-11 12:05] LABS: ALT (SGPT) 22 U/L (8-55); AST (SGOT) 18 U/L (5-34); Albumin 3.4 g/dL (3.5-5.0); Alkaline Phosphatase 97 U/L (40-110); Anion Gap 13 mmol/L (10-20); BUN (Urea Nitrogen) 14 mg/dL (9.8-20.1); Bilirubin, Total 0.4 mg/dL (0.2-1.2); Calc. Creatinine Clearance 0 mL/min (70-130); Calcium 9.2 mg/dL (7.8-10.44); Carbon Dioxide 27 mmol/L (22-29); Chloride 101 mmol/L (98-107); Estimated GFR-MDRD 88; Globulin 3.7 g/dL (2.4-3.5); Glucose 115 mg/dL (70-105); Potassium 4.7 mmol/L (3.5-5.1); Protein, Total 7.1 g/dL (6.0-8.3); Sodium 136 mmol/L (136-145)
--- NOTE | 2019-09-11 12:13 | CT ---
EXAM: Brain CTWithout contrast: HISTORY: Shortness of breath, headache, cough, lung cancer diagnosis COMPARISON: None FINDINGS: No focal mass or midline shift. No intra or extra-axial hemorrhage. Sinuses and mastoids are clear of acute process. IMPRESSION: No mass or bleed or other significant acute intracranial process.
[2019-09-11] MEDS ORDERED: Dexamethasone 10 MG/ML VIAL ONE (12:48)
--- NOTE | 2019-09-11 13:51 | CT ---
CT ANGIOGRAM THORAX WITH IV CONTRAST AND 3-D RECONSTRUCTIONS CLINICAL INDICATION: Portal diagnosis of lung cancer. One-week shortness of breath, headache, and cough. COMPARISON: CTA neck on 08/13/2019 FINDINGS: Pulmonary arteries: No filling defects are seen in the pulmonary arteries to suggest a pulmonary embo bronwyn. Aorta: Minimal vascular calcifications are seen with vascular calcifications seen in the coronary art eries. The thoracic aorta is normal in caliber without evidence of an aortic dissection. Lungs: Small bilateral pleural effusions are present. There are diffuse nodular densities and nodular parenchymal areas of consolidation with larger areas of consolidation seen medial aspect left lower lobe and at the left lung base. There is interstitial thickening seen bilaterally. Given multip le nodular opacities, metastatic disease should be considered. Given associated patchy parenchymal areas of consolidation, superimposed atypical infectious process is also a possibility. Mediastinum: There is bulky lymphadenopathy seen throughout the mediastinum as well as involving each hilar region. Largest prevascular space lymph node measures 3.4 cm x 2.7 cm with additional enlarged lymph nodes seen in the mediastinum and each hilar region. There is lymphadenopathy seen in the supraclavicular as well as at the base of the left neck better visualized on CT neck obtained on 08/13/2019. Thyroid gland: A hypodense nodule is seen in the right lobe of thyroid gland which was also seen on C TA chest on 04/15/2014. Osseous structures: Postsurgical changes lower cervical spine are noted. Mild degenerative changes ar e seen in the spine. There is a remote fracture involving the right posterolateral eighth rib. No suspicious lytic or sclerotic osseous lesions are identified. Chest wall: No abnormality visualized. Upper abdomen: Postcholecystectomy changes are noted. The common duct is dilated measuring 1.5 cm. Th is is more dilated than typically expected, but this is probably attributable to reservoir effect. A calcified granuloma is seen in the spleen. There are postsurgical changes right upper quadrant with evidence of a ventral abdominal wall hernia at the level of postsurgical changes containing fat. This is incompletely imaged. IMPRESSION: 1. Extensive and diffuse nodular densities as well as nodular areas of consolidation seen throughout the lungs bilaterally. Interstitial thickening is also present. Findings are most likely attributable to neoplastic process and extensive metastatic disease. Superimposed atypical infectious process is also a possibility given areas of consolidation especially at each lung base. 2. Small bilateral pleural effusions. 3. Extensive mediastinal and hilar lymphadenopathy with lymphadenopathy at the base of the left neck. While lymphadenopathy can be reactive in origin secondary to infectious process, findings are worrisome for metastatic disease. 4. No CT evidence of a pulmonary embolus. 5. Postcholecystectomy changes. 6. Nodule right lobe of thyroid gland also seen on prior CT exam in 2013. 7. Right anterolateral ventral abdominal wall hernia containing fat.
[2019-09-11] MEDS ORDERED: diphenhydrAMINE 50 MG/ML VIAL ONE (14:19)
[2019-09-11] MEDS ORDERED: Metoclopramide HCl 10 MG/2 ML VIAL ONE (14:19)
[2019-09-11] MEDS ORDERED: Acetaminophen 325 MG TAB PO PRN (16:37)
[2019-09-11] MEDS ORDERED: traMADol HCl 50 MG TAB PO PRN (16:40)
[2019-09-11] MEDS ORDERED: Acetaminophen/Codeine 30-300mg Tablet PO PRN (16:40)
--- NOTE | 2019-09-11 17:12 | CON ---
DATE OF CONSULTATION: 09/11/2019 CONSULTING PHYSICIAN: Ekaterina Gaitan PA-C, nurse practitioner. REASON FOR CONSULTATION: Hypoxemia. HISTORY OF PRESENT ILLNESS: The patient is a 59-year-old female who has been receiving her care at [facility] [place]. A week or so ago, she was diagnosed with metastatic adenocarcinoma. The largest site was a lymph node in the left neck, but a CT shows disseminated nodules in both lungs. She came in today for hypoxemia. She had a CT pulmonary angiogram which was negative for pulmonary emboli, but showed significant tumor burden in both lungs. She has a history of COPD and had seen Dr. Guaman in the past in our office. She has continued to smoke up until about 3 weeks ago when it was suspected that she had a cancer. She presents to the ER today with increasing shortness of breath. She is yet to start chemotherapy. PAST MEDICAL HISTORY: 1. Remarkable for COPD. 2. Bipolar disorder. 3. Hepatitis C. PAST SURGICAL HISTORY: 1. Appendectomy. 2. Left inguinal hernia repair. 3. Open cholecystectomy. 4. Tonsillectomy. 5. Tubal ligation. SOCIAL HISTORY: Former IV drug abuser. She smoked 1 pack a day up until quitting three weeks ago. Does not consume alcohol. MEDICATIONS: Listed on chart. REVIEW OF SYSTEMS: Otherwise negative except for the shortness of breath. PHYSICAL EXAMINATION: VITAL SIGNS: O2 saturation running in the low 90s on 6 L nasal cannula, blood pressure 120/70, respiratory rate 22. GENERAL: She is dyspneic at rest. HEENT: Unremarkable. NECK: She has a large matted area lymph nodes in the left supraclavicular area. CARDIOVASCULAR: S1 and S2 regular. LUNGS: Coarse breath sounds bilaterally. ABDOMEN: Soft. Nontender. EXTREMITIES: No clubbing, cyanosis, or edema. LABORATORY DATA: Sodium 136, potassium 4.7, BUN 14, creatinine 0.7, glucose 115. White blood count 9.2, hematocrit 46.9, and platelet count 404. CT was reviewed. ASSESSMENT: Hypoxemia secondary to overwhelming tumor burden in the lungs for metastatic adenocarcinoma. RECOMMENDATION: Beside supplemental oxygen, there is little that can be done other than treatment of the underlying cancer. I have suggested transfer to her treating oncologist so that she can begin chemotherapy or immunotherapy in a timely fashion. Job ID: [id number]
[2019-09-11 17:26] LABS: Actual Bicarbonate (HCO3a) 30.8 mEq/L (22-28); Base Excess (BEa) 0.4 mEq/L (-2.0 to +3.0); Calcium, Ionized 1.21 mmol/L (1.12-1.30); Carboxyhemoglobin (COHb) 3.6 gm% (0.0-3.0); Hemoglobin (Hb) 15.8 g/dL (12.0-16.0); O2 Tension (PaO2) 70.6 mmHg (80.0-100.0); Potassium - ABG Lab 4.86 mmol/L (3.70-5.30)
[2019-09-11 17:27] LABS: CO2 Tension 76.9 mmHg (35.0-45.0); Puncture Site RR; pH, Arterial 7.22 (7.35-7.45)
--- NOTE | 2019-09-11 17:37 | PDOC.EVN ---
Event Note - Event Note Event Note: Code Green after pt reached room for hypoxia. Discussed with patient re: code status. She was initially DNR but has now changed her mind. Mango wishes to be Full Code. Her son Saroj is surrogate decision maker. Left voicemail for son re: change in status.
--- NOTE | 2019-09-11 17:52 | HP ---
PRIMARY CARE PROVIDER: Dr. Monae Alcantara. CHIEF COMPLAINT: Shortness of breath. HISTORY OF PRESENT ILLNESS: Ms. Macdonald is a pleasant 59-year-old lady, who was seen at [facility] on September 11, 2019. The patient is currently upset. She is able to provide history. Collateral history was also obtained from discussion with the patient's son over the telephone, discussion with emergency room physician and review of medical records. Ms. Macdonald was reportedly diagnosed with lung cancer at [facility] last week. Her son reports that she was supposed to have a PET scan sometime next week. She was also supposed to see a mortarman at [facility]. She reportedly has been less mobile over the last several days. She has been having on and off headaches, son reports that she has a history of chronic migraine headaches. Today, she felt severe shortness of breath. EMS reports that room air oxygen saturation was in the 70s. She was, therefore, brought to the emergency room. In the emergency room, pulmonary embolism was ruled out with CT angiogram of the chest. Oxygen saturations improved after starting oxygen, she is currently at 6 L/minute. She has refused BiPAP therapy. Her case was discussed with mortarman on-call, who recommended transfer to [facility] for continuity of care. However, [facility] declined the transfer because they are currently on diversion. The patient is being admitted to [facility] for further management. She reports headache, but is unable to characterize it further. She denies any fevers or chills. She reports nausea. She denies any abdominal pain. REVIEW OF SYSTEMS: All systems were reviewed and found to be negative except for the pertinent positives mentioned above. PAST MEDICAL HISTORY: Osteoarthritis, hypertension, hepatitis, status post treatment and recently diagnosed lung cancer. PAST SURGICAL HISTORY: Hernia repair, cholecystectomy, back surgery x2, left knee surgery, appendectomy, ectopic surgery, and neck surgery. PSYCHIATRIC HISTORY: Bipolar disorder, type 1. SOCIAL HISTORY: According to the patient's son, she has smoked for several years, but over the last one week, her smoking has decreased and she has been using nicotine patches. She is a recovering alcoholic and recovering drug addict. FAMILY HISTORY: Breast cancer in her sister and emphysema in her mother. CODE STATUS: I discussed her code status. She is DNAR. Her son confirmed code status over the telephone as well. ALLERGIES: LIDOCAINE, LITHIUM CARBONATE, AND ORAL LIDOCAINE SPRAY. CURRENT MEDICATIONS: 1. Amlodipine 5 mg daily. 2. Loratadine 10 mg daily. 3. Lyrica 200 mg daily. 4. Acetaminophen/codeine p.r.n. 5. Aspirin 325 mg tablets, unclear how many she is taking. PHYSICAL EXAMINATION: GENERAL: On examination, Ms. Macdonald is awake and alert, in mild distress, tearful. VITAL SIGNS: Blood pressure is 144/75, pulse 100, respiratory rate 20, and oxygen saturation 95% on 6 L of oxygen. T-max in the emergency room was 99.1 degrees Fahrenheit. EYES: No scleral icterus. No conjunctival pallor. ENT: Moist mucosal membranes. No oropharyngeal erythema or exudates. NECK: Supple and nontender. She has cervical lymphadenopathy. RESPIRATORY: Accessory muscles of breathing are mildly active. Chest wall movements are symmetric bilaterally. She has expiratory wheeze bilaterally. CARDIOVASCULAR: S1 and S2 are heard, regular. Peripheral pulses palpable. ABDOMEN: Soft and nontender. Bowel sounds heard. NEUROLOGIC: Cranial nerves 2 through 12 are intact. MUSCULOSKELETAL: Power is 5/5 in all 4 extremities. SKIN: No rashes. LYMPHATIC: She has cervical and left supraclavicular lymphadenopathy. PSYCHIATRIC: The patient is anxious, tearful, oriented to person, place, and time. LABORATORY DATA: Ms. Macdonald's labs and investigations were reviewed. EKG done by EMS shows normal sinus rhythm, no ST changes to suggest an acute coronary syndrome. Noncontrast CT scan of the brain did not show any mass or bleed or other significant acute intracranial process. CT angiogram of the chest did not show any evidence of pulmonary embolism. She had extensive and diffuse nodular densities as well as nodular areas of consolidation seen throughout the lungs bilaterally. She also had interstitial thickening. Radiologist felt superimposed atypical infectious process is also a possibility, given areas of consolidation especially at each lung base. She also had small bilateral pleural effusions, extensive mediastinal and hilar lymphadenopathy. She had nodule in the right lobe of thyroid gland, also seen on prior CT exam in 2014 and right anterolateral ventral abdominal wall hernia containing fat. She has normal white count, normal hemoglobin, elevated platelet count of 404,000, unremarkable comprehensive metabolic profile, normal lactic acid, and normal troponin-I. Urinalysis is negative for nitrite and leukocyte esterase. ASSESSMENT AND PLAN: Ms. Macdonald is a pleasant 59-year-old lady, who was seen at [facility] on September 11, 2019. Her problem list includes: 1. Shortness of breath: Etiology is unclear, most likely related to metastatic lung cancer. She will be admitted to the hospital for further management. She will be started on bronchodilator nebulizers, scheduled and p.r.n. Vital signs will be checked to ensure her oxygenation is improving. She does have findings of consolidation on CT scan of the chest. However, she does not have fever or leukocytosis, therefore I am holding off on antibiotics at this time. 2. Metastatic lung cancer: Recently diagnosed. She will need to follow up with her oncologist at [facility]. I will obtain her records from [facility] will be obtained, so that we can have a better picture of her diagnosis and overall prognosis. 3. Hypertension: Continue amlodipine once doses clarified, monitor vital signs and titrate antihypertensives as needed. 4. Tobacco abuse: Tobacco cessation counseling, nicotine replacement therapy. 5. Chronic headaches: Trial p.r.n. Toradol, tramadol, and Tylenol No. 3. 6. Acute hypoxic respiratory failure: Management as described above. Many thanks for allowing me to participate in your patient's care. Please feel free to contact me with any questions or concerns. LEVEL OF RISK: Moderate. LEVEL OF COMPLEXITY: Moderate. Job ID: [id number]
[2019-09-11 19:25] VITALS: BMI 29.7
[2019-09-11] MEDS: Nicotine 14 MG PATCH TD SCH (20:42)
[2019-09-11] MEDS: Acetaminophen/Codeine 30-300mg Tablet PO PRN (20:42)
--- NOTE | 2019-09-11 21:56 | PDOC.FMACP ---
Advance Care Planning - Note Participants: patient, family Summary: Advanced Care Planning was discussed. The diagnosis, prognosis and goals of care were discussed. Appropriate forms and documentation to accomplish the goals of care were discussed. All questions were answered. The Palliative Care Team will be engaged to assist with completion of any outstanding forms that are needed. Patient initially wanted to be DNAR, subsequently wanted to be Full Code. Surrogate decision maker is her son Saroj. Time Spent (mins): 20
[2019-09-11] MEDS: Melatonin 3 MG TAB PO PRN (23:35)
[2019-09-12] MEDS: Acetaminophen/Codeine 30-300mg Tablet PO PRN ×3 (04:31→20:30)
[2019-09-12] MEDS: Ketorolac Tromethamine 30 MG/ML VIAL IVP PRN ×3 (04:37→19:20)
[2019-09-12 06:30] LABS: #Monocytes 0.5 thou/uL (0.11-0.59); #Neutrophils 7.2 thou/uL (1.40-6.50); %Basophils 0.4 % (0.0-1.0); %Eosinophils 0.1 % (0.0-10.0); %Lymphocytes 10.8 % (21.0-51.0); %Monocytes 5.9 % (0.0-10.0); %Neutrophils 82.7 % (42.0-75.0); Hemoglobin 14.5 g/dL (12.0-16.0); Mean Corpuscular HGB CONC 32.6 g/dL (32.0-36.0); Mean Corpuscular Hemoglobin 34.1 pg (27.0-31.0); Mean Platelet Volume 6.4 fL (7.4-10.4); Platelet Count 367 thou/uL (130-400); RBC Distribution Width 12.3 % (11.5-14.5); Red Blood Cell (RBC) Count 4.26 mill/uL (4.20-5.40); White Blood Cell (WBC) Count 8.7 thou/uL (4.8-10.8)
[2019-09-12 06:49] LABS: Anion Gap 11 mmol/L (10-20); BUN (Urea Nitrogen) 12 mg/dL (9.8-20.1); Calc. Creatinine Clearance 122 mL/min (70-130); Calcium 9.1 mg/dL (7.8-10.44); Carbon Dioxide 30 mmol/L (22-29); Chloride 99 mmol/L (98-107); Estimated GFR-MDRD Greater than 90; Glucose 135 mg/dL (70-105); Potassium 5.2 mmol/L (3.5-5.1); Sodium 135 mmol/L (136-145)
[2019-09-12] MEDS ORDERED: Prevnar 13-Val Conj/PF 0.5 ML SYRINGE IM ONE (09:00)
[2019-09-12] MEDS ORDERED: Amlodipine 5 MG TAB PO SCH ×2 (09:00)
[2019-09-12] MEDS: Amlodipine 5 MG TAB PO SCH (09:16)
[2019-09-12] MEDS: Enoxaparin Sodium 40 MG/0.4 ML SYRINGE SC SCH (09:17)
[2019-09-12] MEDS: traMADol HCl 50 MG TAB PO PRN ×2 (09:17→17:37)
--- NOTE | 2019-09-12 13:39 | PDOC.MOPN ---
Interval History: Brief note: Patient not on the floor for evaluation, down getting an MRI of the brain. Her LN biopsy at [facility] showed metastatic adenocarcinoma. Still awaiting further records for complete staging. Treatment would depend on extent of disease, PD-L1 and mutational testing on the path, some of which may have already been done at [facility] and need these records to determine potential treatment options. - Vital Signs Vital Signs: Vital Signs (12 hours) Temp Pulse Resp BP BP Pulse Ox 09/12/19 11:46 98.4 F 85 18 117/75 97 09/12/19 09:16 95 128/64 09/12/19 09:07 99.5 F 95 22 H 128/64 96 09/12/19 08:32 97 09/12/19 08:09 97 09/12/19 07:30 92 24 H 09/12/19 03:20 98.7 F 105 H 18 112/64 92 L Weight Weight 167 lb 10.24 oz - Labs Result Diagrams: 09/12/19 06:22 09/12/19 06:22 Lab results: Laboratory Results - last 24 hr 09/12/19 06:22: WBC 8.7, RBC 4.26, Hgb 14.5, Hct 44.6, MCV 105.0 H, MCH 34.1 H, MCHC 32.6, RDW 12.3, Plt Count 367, MPV 6.4 L, Neutrophils % 82.7 H, Lymphocytes % 10.8 L, Monocytes % 5.9, Eosinophils % 0.1, Basophils % 0.4, Neutrophils # 7.2 H, Lymphocytes # 1.0 L, Monocytes # 0.5, Eosinophils # 0.0, Basophils # 0.0 09/12/19 06:22: Sodium 135 L, Potassium 5.2 H, Chloride 99, Carbon Dioxide 30 H , Anion Gap 11, BUN 12, Creatinine 0.61, Estimated GFR (MDRD) Greater than 90, Glucose 135 H, Calcium 9.1 09/11/19 17:20: Specimen Type ARTERIAL, Puncture Site RR, Bicarbonate Actual 30.8 H, ABG pH 7.22 L*, ABG pCO2 76.9 H*, ABG pO2 70.6 L, ABG O2 Sat Calc/Brian 92.7 L, ABG O2 Content 19.8, ABG Base Excess 0.4, ABG Hematocrit 46.0, ABG Hemoglobin 15.8, ABG Oxyhemoglobin 89.1 L, ABG Carboxyhemoglobin 3.6 H, ABG Methemoglobin 0.30, ABG Deoxyhemoglobin 7.0 H, Alf Test POSITIVE, Sodium 136, Potassium 4.86, Chloride 100, Ionized Calcium 1.21, Mode of Support 10L/M SM, Spontaneous Rate 24 09/11/19 17:17: POC Glucose 187 H
[2019-09-12] MEDS ORDERED: Magnevist 469MG/ML 20 ML VIAL ONE (13:52)
--- NOTE | 2019-09-12 13:53 | PDOC.HOSPP ---
- Subjective Encounter Date: 09/12/19 Encounter Time: 07:00 Subjective: Pt seen for followup re: acute hypoxic respiratory failure. c/o ongoing headache. - Objective Vital Signs & Weight: Vital Signs (12 hours) Temp Pulse Resp BP BP Pulse Ox 09/12/19 11:46 98.4 F 85 18 117/75 97 09/12/19 09:16 95 128/64 09/12/19 09:07 99.5 F 95 22 H 128/64 96 09/12/19 08:32 97 09/12/19 08:09 97 09/12/19 07:30 92 24 H 09/12/19 03:20 98.7 F 105 H 18 112/64 92 L Weight Weight 167 lb 10.24 oz Result Diagrams: 09/12/19 06:22 09/12/19 06:22 Additional Labs: Accuchecks 09/11/19 17:17 POC Glucose 187 H Labs and MARs reviewed by me EKG Reviewed by me: Yes (Tele: NSR) Hospitalist ROS - Review of Systems Respiratory: reports: SOB with excertion. denies: cough, dry, shortness of breath, hemoptysis, pleuritic pain, sputum, wheezing Cardiovascular: denies: chest pain, palpitations, orthopnea, paroxysmal noc. dyspnea, edema, light headedness Gastrointestinal: denies: nausea, vomiting, abdominal pain, diarrhea, constipation, melena, hematochezia Genitourinary: denies: dysuria, frequency, incontinence, hematuria, retention Neurological: reports: other (headache). denies: weakness, numbness, incoordination, change in speech, confusion, seizures - Medication Medications: Active Medications Generic Name Dose Route Start Last Admin Trade Name Freq PRN Reason Stop Dose Admin Acetaminophen/Codeine Phosphate 2 tab 09/11/19 16:40 09/12/19 04:31 Tylenol #3 PO 2 tab Q6H PRN Administration Severe Pain (7-10) Albuterol/Ipratropium 3 ml 09/11/19 19:00 09/12/19 07:30 Duoneb NEB 3 ml [id number] TRAVIS Administration Amlodipine Besylate 5 mg 09/12/19 09:00 09/12/19 09:16 Norvasc PO 5 mg QAM TRAVIS Administration Enoxaparin Sodium 40 mg 09/12/19 09:00 09/12/19 09:17 Lovenox SC 40 mg 0900 TRAVIS Administration Ketorolac Tromethamine 15 mg 09/11/19 16:40 09/12/19 10:45 Toradol IVP 09/16/19 16:41 15 mg Q6H PRN Administration Pain Melatonin 3 mg 09/11/19 23:24 09/11/19 23:35 Melatonin PO 3 mg HS PRN Administration Insomnia Nicotine 14 mg 09/11/19 17:00 09/11/19 20:42 Nicoderm Patch TD 14 mg Q24HR TRAVIS Administration Tramadol HCl 100 mg 09/11/19 16:40 09/12/19 09:17 Ultram PO 100 mg Q6H PRN Administration Severe Pain (7-10) - Exam General Appearance: awake alert Eye: anicteric sclera ENT: moist mucosa Neck: supple, symmetric, no JVD, no thyromegaly Heart: RRR, no gallops, no rubs, normal peripheral pulses Respiratory: no rales, no ronchi, normal chest expansion, wheezes Gastrointestinal: soft, non-tender, non-distended, normal bowel sounds Skin: no rashes Psychiatric: normal affect, normal behavior, A&O x 3 Hosp A/P (1) Acute respiratory failure with hypoxia Code(s): J96.01 - ACUTE RESPIRATORY FAILURE WITH HYPOXIA Status: Acute (2) Headache Code(s): R51 - HEADACHE Status: Acute (3) HTN (hypertension) Code(s): I10 - ESSENTIAL (PRIMARY) HYPERTENSION Status: Chronic (4) Tobacco abuse Code(s): Z72.0 - TOBACCO USE Status: Chronic (5) Metastatic primary lung cancer Code(s): C34.90 - MALIGNANT NEOPLASM OF UNSP PART OF UNSP BRONCHUS OR LUNG Status: Chronic - Plan Pt on high-flow oxygen and bronchodilators. MRI brain to r/o mets. Continue nicotine patch. HTN controlled, continue amlodipine. Await records from [facility].
--- NOTE | 2019-09-12 15:04 | MRI ---
EXAM: Brain MRI with and without contrast: HISTORY: Multiple pulmonary nodules, metastasis COMPARISON: None FINDINGS: Multiplanar multisequence MRI examination of the brain is performed. The ventricles are within normal limits of size shape and position. No mass or midline shift. No evidence for intra or extra-axial hemorrhage. No evidence for abnormal restricted diffusion. No evidence for acute infarct. Normal-appearing flow voids are noted. The extracranial soft tissues and calvarial marrow signal appear within normal limits. Very subtle sinus mucosal congestion. No evidence for abnormal contrast enhancement. No evidence for brain metastasis. Considerable motion artifact lowers the sensitivity of this study. IMPRESSION: No significant acute intracranial process. No mass or bleed. No acute infarct.
--- NOTE | 2019-09-12 15:46 | PRG ---
DATE OF SERVICE: 09/12/2019 SUBJECTIVE: The patient has lost questions about her care regarding oncologic issues. OBJECTIVE: VITAL SIGNS: Temperature 98.4, pulse 99, respirations 20, O2 saturation in the mid 90s on 38% high-flow oxygen. HEENT: Unremarkable. NECK: No JVD. LUNGS: Crackles bilaterally. CARDIAC: S1 and S2 regular. ABDOMEN: Soft. EXTREMITIES: No edema. ASSESSMENT: 1. Metastatic adenocarcinoma. 2. Underlying chronic obstructive pulmonary disease from tobacco abuse. PLAN: Again, this patient needs chemotherapy or she will not improve. Hopefully, we can wean her oxygen some. I would not stop her Xanax that she takes as an outpatient. Job ID: [id number]
[2019-09-12] MEDS: Nicotine 14 MG PATCH TD SCH (17:38)
[2019-09-12] MEDS: Melatonin 3 MG TAB PO PRN (20:30)
[2019-09-13] MEDS: Ketorolac Tromethamine 30 MG/ML VIAL IVP PRN ×2 (01:18→07:40)
[2019-09-13] MEDS: traMADol HCl 50 MG TAB PO PRN ×2 (02:04→12:10)
[2019-09-13 04:21] LABS: #Basophils 0.1 thou/uL (0.0-0.2); #Eosinphils 0.2 thou/uL (0.0-0.7); #Lymphocytes 1.9 thou/uL (1.20-3.40); #Neutrophils 10.3 thou/uL (1.40-6.50); %Basophils 0.5 % (0.0-1.0); %Eosinophils 1.7 % (0.0-10.0); %Lymphocytes 13.8 % (21.0-51.0); %Monocytes 7.6 % (0.0-10.0); %Neutrophils 76.5 % (42.0-75.0); Hemoglobin 14.4 g/dL (12.0-16.0); Mean Corpuscular Hemoglobin 34.6 pg (27.0-31.0); Mean Platelet Volume 6.3 fL (7.4-10.4); Platelet Count 373 thou/uL (130-400); RBC Distribution Width 12.3 % (11.5-14.5); Red Blood Cell (RBC) Count 4.16 mill/uL (4.20-5.40); White Blood Cell (WBC) Count 13.5 thou/uL (4.8-10.8)
[2019-09-13 04:43] LABS: Anion Gap 11 mmol/L (10-20); BUN (Urea Nitrogen) 14 mg/dL (9.8-20.1); Calc. Creatinine Clearance 133 mL/min (70-130); Calcium 9.5 mg/dL (7.8-10.44); Carbon Dioxide 33 mmol/L (22-29); Chloride 97 mmol/L (98-107); Estimated GFR-MDRD Greater than 90; Glucose 106 mg/dL (70-105); Potassium 4.9 mmol/L (3.5-5.1); Sodium 136 mmol/L (136-145)
[2019-09-13] MEDS: Acetaminophen/Codeine 30-300mg Tablet PO PRN ×2 (05:50→16:19)
[2019-09-13] MEDS: Enoxaparin Sodium 40 MG/0.4 ML SYRINGE SC SCH (07:38)
[2019-09-13] MEDS: Amlodipine 5 MG TAB PO SCH (07:38)
[2019-09-13] MEDS ORDERED: Dihydroergotamine Mesylate 1 MG/ML AMP SLOW IVP SCH (10:30)
[2019-09-13] MEDS: ALPRAZolam 0.25 MG TAB PO PRN (11:16)
--- NOTE | 2019-09-13 11:27 | PDOC.PALCO ---
Palliative Care Consult - Consult Details Requesting Physician: Dr Olivares Reason for Consult: goals of care, assistance with communication prognosis/ disease, family support Family Members Present: Patient two sisters, Beth and - Pertinent HPI 59 year old female who was recently diagnosed at [facility] one week ago with lung cancer. After diagnosis patient returned to the home setting. She had increasing weakness, shortness of breath and onset of migraine. EMS was called and patient found with poor O2 saturation and anxiety. Was transported to the emergency room [facility] who attempted to transfer to [facility] as that was where patient was initially diagnosed and to follow up, transfer was denied secondary to [facility] being on diversion. Admitted for medical management of shortness of breath, acute hypoxic respiratory failure, hypertension, and recent diagnosis of lung disease. - Pertinent PMH Osteoarthritis, hypertension, hepatitis, recent diagnosis of adenocarcinoma unknown primary site. - Social History Smoking Status: Current every day smoker Smoking: cigarettes Alcohol Use: in recovery Living Situation: independent - Medications MAR Reviewed: Yes - Allergies Allergies/Adverse Reactions: Allergies Allergy/AdvReac Type Severity Reaction Status Date / Time carbamazepine [From Tegretol] Allergy Unknown Verified 09/11/19 19:35 lithium Allergy Unknown Verified 09/11/19 19:35 ORAL LIDOCAINE SPRAY Allergy Unknown "CARBON Uncoded 09/11/19 19:35 MONOXIDE POISONING" - Subjective In distress, anxious, fearful. Labored respirations, pulse regular at 66. Sistermercedes Mcgill at bedside. - ROS Constitutional: weakness Respiratory: shortness of breath, wheezing Cardiology: other (negative for chest pain, palpitations) Gastrointestinal: other (negative for diarrhea, nausea) Musculoskeletal: other (Denies pain) Psychological: anxiety - Objective Vital Signs: Vital Signs - Most Recent Temp Pulse Resp BP Pulse Ox 98.4 F 84 24 H 177/84 H 95 09/13/19 08:00 09/13/19 08:00 09/13/19 08:00 09/13/19 08:00 09/13/19 08:00 Palliative Performance Scale: 80 - Physical Exam Constitutional: ill appearing, mild distress HEENT: EOMI, moist MMs, sclera anicteric Respiratory: labored respirations, tachypnea, wheezing present Cardiovascular: RRR Gastrointestinal: soft, non-tender Genitourinary: continent Musculoskeletal: no cyanosis, no clubbing Neurology: moves all 4 limbs Skin: cap refill <2 seconds Psychiatric: A&O x 3 Deviation from normal: Anxious - Problem List (1) Acute respiratory failure with hypoxia Code(s): J96.01 - ACUTE RESPIRATORY FAILURE WITH HYPOXIA Current Visit: Yes Status: Acute (2) Adenocarcinoma Code(s): C80.1 - MALIGNANT (PRIMARY) NEOPLASM, UNSPECIFIED Current Visit: Yes Status: Acute (3) Headache Code(s): R51 - HEADACHE Current Visit: Yes Status: Acute (4) Palliative care encounter Code(s): Z51.5 - ENCOUNTER FOR PALLIATIVE CARE Current Visit: Yes Status: Acute (5) HTN (hypertension) Code(s): I10 - ESSENTIAL (PRIMARY) HYPERTENSION Current Visit: Yes Status: Chronic (6) Tobacco abuse Code(s): Z72.0 - TOBACCO USE Current Visit: Yes Status: Chronic - Plan/Recommendations Plan: Discussed with Dr Olivares Ordered Clonazepam TID secondary to pronounced anxiety Respiratory to come evaluate patient Medication to be given for Migraine, will educate that it can be given in one hour if not migraine not relieved. Support given to patient, sisters as patient fearful of new diagnosis and shortness of breath increasing her anxious state. Sisters provided recent history of new diagnosis. Discussed short term goal of relieving Migraine, decreasing anxiety. Discussed MPOA, will have Joey Ghosh RN and Yazan Shane follow up. [70] minutes spent on this encounter with >50% of the time in counseling and coordination of care. Thank you for this very appropriate consult.
--- NOTE | 2019-09-13 12:31 | PDOC.HOSPP ---
- Subjective Encounter Date: 09/13/19 Encounter Time: 08:00 Subjective: Pt seen for followup re: hypoxic resp failure. Feels slightly better today. Still has headache. - Objective Vital Signs & Weight: Vital Signs (12 hours) Temp Pulse Resp BP Pulse Ox 09/13/19 11:22 83 20 96 09/13/19 08:00 98.4 F 84 24 H 177/84 H 95 09/13/19 07:55 92 22 H 96 09/13/19 07:38 77 09/13/19 02:03 97.8 F 77 20 140/79 93 L Weight Weight 167 lb 10.24 oz I&O: 09/12/19 09/13/19 09/14/19 06:59 06:59 06:59 Intake Total 685 Output Total 600 Balance 85 Result Diagrams: 09/13/19 04:02 09/13/19 04:02 Additional Labs: Labs and MARs reviewed by me EKG Reviewed by me: Yes (Tele: NSR) Hospitalist ROS - Review of Systems Respiratory: reports: SOB with excertion Cardiovascular: denies: chest pain, palpitations, orthopnea, paroxysmal noc. dyspnea, edema, light headedness Gastrointestinal: denies: nausea, vomiting, abdominal pain, diarrhea, constipation, melena, hematochezia Neurological: reports: other (headache) - Medication Medications: Active Medications Generic Name Dose Route Start Last Admin Trade Name Freq PRN Reason Stop Dose Admin Acetaminophen/Codeine Phosphate 2 tab 09/11/19 16:40 09/13/19 05:50 Tylenol #3 PO 2 tab Q6H PRN Administration Severe Pain (7-10) Albuterol/Ipratropium 3 ml 09/11/19 19:00 09/13/19 07:55 Duoneb NEB 3 ml [id number] TRAVIS Administration Albuterol/Ipratropium 3 ml 09/11/19 16:42 09/13/19 11:22 Duoneb NEB 3 ml Q6H PRN Administration SOB &/or Wheezing Alprazolam 0.25 mg 09/13/19 08:45 09/13/19 11:16 Xanax PO 0.25 mg BIDPRN PRN Administration Anxiety Amlodipine Besylate 5 mg 09/12/19 09:00 09/13/19 07:38 Norvasc PO 5 mg QAM TRAVIS Administration Dihydroergotamine Mesylate 1 mg 09/13/19 10:30 09/13/19 11:58 D.H.E. 45 SLOW IVP 09/13/19 12:30 1 mg NOW TRAVIS Administration Enoxaparin Sodium 40 mg 09/12/19 09:00 09/13/19 07:38 Lovenox SC 40 mg 0900 TRAVIS Administration Ketorolac Tromethamine 15 mg 09/11/19 16:40 09/13/19 07:40 Toradol IVP 09/16/19 16:41 15 mg Q6H PRN Administration Pain Melatonin 3 mg 09/11/19 23:24 09/12/19 20:30 Melatonin PO 3 mg HS PRN Administration Insomnia Nicotine 14 mg 09/11/19 17:00 09/12/19 17:38 Nicoderm Patch TD Not Given Q24HR TRAVIS Tramadol HCl 100 mg 09/11/19 16:40 09/13/19 12:10 Ultram PO 100 mg Q6H PRN Administration Severe Pain (7-10) - Exam General Appearance: awake alert Eye: anicteric sclera ENT: normocephalic atraumatic, no oropharyngeal lesions Neck: supple Heart: RRR, no gallops Respiratory: CTAB Gastrointestinal: soft, non-tender Extremities: no cyanosis Musculoskeletal: no muscle wasting Psychiatric: normal behavior, oriented to person, oriented to place Hosp A/P (1) Acute respiratory failure with hypoxia Code(s): J96.01 - ACUTE RESPIRATORY FAILURE WITH HYPOXIA Status: Acute (2) Headache Code(s): R51 - HEADACHE Status: Acute (3) HTN (hypertension) Code(s): I10 - ESSENTIAL (PRIMARY) HYPERTENSION Status: Chronic (4) Tobacco abuse Code(s): Z72.0 - TOBACCO USE Status: Chronic (5) Metastatic primary lung cancer Code(s): C34.90 - MALIGNANT NEOPLASM OF UNSP PART OF UNSP BRONCHUS OR LUNG Status: Chronic - Plan Continue high-flow oxygen and bronchodilators. MRI brain nil acute, trial IV DHE. On nicotine patch. Continue amlodipine. Transfer to oncology floor.
[2019-09-13] MEDS ORDERED: Bisacodyl 5 MG TAB PO PRN (13:41)
[2019-09-13] MEDS: Ondansetron PF 4 MG/2 ML Vial IVP PRN (15:11)
[2019-09-13] MEDS ORDERED: Metoclopramide HCl 10 MG/2 ML VIAL IVP PRN (15:16)
[2019-09-13] MEDS ORDERED: diphenhydrAMINE 50 MG/ML VIAL IVP PRN (15:18)
[2019-09-13] MEDS ORDERED: Morphine 2 MG/ML SYRINGE SLOW IVP SCH (15:30)
[2019-09-13] MEDS: clonazePAM 1 MG TAB PO SCH ×2 (15:35→20:57)
[2019-09-13] MEDS ORDERED: Metoclopramide HCl 10 MG/2 ML VIAL IVP SCH (15:45)
[2019-09-13] MEDS ORDERED: diphenhydrAMINE 50 MG/ML VIAL IVP SCH (15:45)
--- NOTE | 2019-09-13 15:49 | PRG ---
DATE OF SERVICE: 09/13/2019 SERVICE: Pulmonary Medicine. INTERVAL HISTORY: The patient's base complaint is a little bit of nausea associated with the headache today. There has been increasing in intensity over the last couple of days. She indicated that she has had a headache ever since she got diagnosed with cancer. She also suggest that at [facility], she had an MRI which was negative for any intracranial lesions. She denies any current fevers or chills. Her cough is at baseline. She does not have any hemoptysis. Otherwise, there has been no interval change to her condition. PHYSICAL EXAMINATION: VITAL SIGNS: Afebrile, pulse 90, blood pressure 172/83, respirations 20, and saturation 97% on 37% delivered via high-flow nasal cannula. GENERAL: The patient is awake and alert, in no apparent distress. LUNGS: Good air entry bilaterally. Rhonchi and wheezing are both present. There is a prolonged expiratory phase. HEART: Normal rate, regular. ABDOMEN: Soft. Nontender. Nondistended. Bowel sounds are positive. MUSCULOSKELETAL: No cyanosis or clubbing. There is no pitting in the bilateral lower extremities. NEUROLOGIC: Grossly nonfocal. LABORATORY DATA: WBC 13.5, hemoglobin 14.4, platelets 373,000. PH 7.22, pCO2 of 76, PO2 of 71. Basic metabolic profile is completely unremarkable. Potassium has downtrended. Creatinine 0.56. Urinalysis is unremarkable. MRI of the brain demonstrates no acute intracranial abnormality. CTA of the chest demonstrates multifocal bilateral infiltrates and metastatic lesions. ASSESSMENT: 1. Acute on chronic hypoxic respiratory failure. 2. Chronic obstructive pulmonary disease with acute exacerbation. 3. Adenocarcinoma of the lung, widely metastatic. DISCUSSION AND PLAN: We will continue our supportive care including steroids, antibiotics, nebulized medications. I will give her a brief course of Reglan and Benadryl to see if this helps with her underlying headache. Pulmonary will continue to follow while the patient remains in-house, but at this point, she is not ready for discharge. Job ID: [id number] [facility]
--- NOTE | 2019-09-13 17:36 | PDOC.MOPN ---
Interval History: Patient sedated from benadryl. On high flow o2 - Vital Signs Vital Signs: Vital Signs (12 hours) Temp Pulse Resp BP BP Pulse Ox 09/13/19 16:30 98.7 F 87 20 157/87 H 98 09/13/19 16:00 101 H 22 H 152/92 H 98 09/13/19 13:48 90 20 97 09/13/19 12:00 73 172/83 H 09/13/19 11:22 83 20 96 09/13/19 08:00 98.4 F 84 24 H 177/84 H 95 09/13/19 07:55 92 22 H 96 09/13/19 07:38 77 Weight Weight 167 lb 10.24 oz - Physical Exam General: Mild distress, Other HEENT: Atraumatic, PERRLA, EOMI, Mucous membr. moist/pink Lungs: Other (diminished) Cardiovascular: Regular rate, Normal S1, Normal S2, No murmurs, Gallops, Rubs Abdomen: Normal bowel sounds, Soft, No tenderness, No hepatospenomegaly, No masses Skin: No rashes, No breakdown, No significant lesion Neurological: Other (sleepy) - Labs Result Diagrams: 09/13/19 04:02 09/13/19 04:02 Lab results: Laboratory Results - last 24 hr 09/13/19 04:02: WBC 13.5 H, RBC 4.16 L, Hgb 14.4, Hct 43.7, MCV 105.0 H, MCH 34.6 H, MCHC 33.0, RDW 12.3, Plt Count 373, MPV 6.3 L, Neutrophils % 76.5 H, Lymphocytes % 13.8 L, Monocytes % 7.6, Eosinophils % 1.7, Basophils % 0.5, Neutrophils # 10.3 H, Lymphocytes # 1.9, Monocytes # 1.0 H, Eosinophils # 0.2, Basophils # 0.1 09/13/19 04:02: Sodium 136, Potassium 4.9, Chloride 97 L, Carbon Dioxide 33 H, Anion Gap 11, BUN 14, Creatinine 0.56 L, Estimated GFR (MDRD) Greater than 90, Glucose 106 H, Calcium 9.5 Status: lab reviewed by ri - Pathology Pathology: moderately, differentiated adenocarcinoma, unknown primary immunohistochemical stains pending A/P - Problem (1) Adenocarcinoma Current Visit: Yes Code(s): C80.1 - MALIGNANT (PRIMARY) NEOPLASM, UNSPECIFIED Status: Acute - Plan Plan: review of medical records from [facility] show moderately differentiated adenocarcinoma , unknown primary immunohistochemical stains pending. negative for lymphoma. will discuss with Dr. Hernan Guaman following
[2019-09-13] MEDS: Nicotine 14 MG PATCH TD SCH (17:51)
[2019-09-13 23:22] LABS: Actual Bicarbonate (HCO3a) 39.5 mEq/L (22-28); Base Excess (BEa) 8.4 mEq/L (-2.0 to +3.0); Calcium, Ionized 1.28 mmol/L (1.12-1.30); Carboxyhemoglobin (COHb) 1.9 gm% (0.0-3.0); Hemoglobin (Hb) 15.5 g/dL (12.0-16.0); Potassium - ABG Lab 4.41 mmol/L (3.70-5.30); pH, Arterial 7.27 (7.35-7.45)
[2019-09-13 23:23] LABS: CO2 Tension 88.8 mmHg (35.0-45.0)
[2019-09-13 23:24] LABS: O2 Tension (PaO2) 58.7 mmHg (80.0-100.0); Puncture Site R RADIAL
--- NOTE | 2019-09-13 23:35 | PDOC.EVN ---
Event Note - Event Note Event Note: RN called for AMS with increased somnolence. ABGs done - 02/08/89 Will transfer to [facility] NIPPV
[2019-09-14 03:35] LABS: #Lymphocytes 0.9 thou/uL (1.20-3.40); #Monocytes 0.9 thou/uL (0.11-0.59); #Neutrophils 9.7 thou/uL (1.40-6.50); %Basophils 0.1 % (0.0-1.0); %Eosinophils 0.2 % (0.0-10.0); %Lymphocytes 7.8 % (21.0-51.0); %Monocytes 7.4 % (0.0-10.0); %Neutrophils 84.4 % (42.0-75.0); Hemoglobin 15.2 g/dL (12.0-16.0); Mean Corpuscular HGB CONC 33.2 g/dL (32.0-36.0); Mean Corpuscular Hemoglobin 34.8 pg (27.0-31.0); Mean Platelet Volume 5.9 fL (7.4-10.4); Platelet Count 401 thou/uL (130-400); RBC Distribution Width 12.3 % (11.5-14.5); Red Blood Cell (RBC) Count 4.38 mill/uL (4.20-5.40); White Blood Cell (WBC) Count 11.5 thou/uL (4.8-10.8)
[2019-09-14 03:57] LABS: Anion Gap 13 mmol/L (10-20); BUN (Urea Nitrogen) 12 mg/dL (9.8-20.1); Calc. Creatinine Clearance 135 mL/min (70-130); Calcium 9.4 mg/dL (7.8-10.44); Carbon Dioxide 36 mmol/L (22-29); Chloride 91 mmol/L (98-107); Estimated GFR-MDRD Greater than 90; Glucose 119 mg/dL (70-105); Potassium 5.5 mmol/L (3.5-5.1); Sodium 134 mmol/L (136-145)
--- NOTE | 2019-09-14 08:02 | PDOC.PALPN ---
Palliative Progress Note - Subjective minimally responsive with stimulation. Remains on BiPap, no sedation - Objective Vital Signs: Vital Signs - Most Recent Temp Pulse Resp BP Pulse Ox 98.6 F 96 14 125/75 98 09/14/19 07:00 09/14/19 07:10 09/14/19 07:09 09/13/19 22:02 09/14/19 07:10 - Physical Exam Constitutional: encephalitic, ill appearing HEENT: moist MMs, sclera anicteric Deviation from normal: Bi pap, bilaterally adventicious lung sounds Cardiovascular: RRR Gastrointestinal: soft, positive bowel sounds Deviation from normal: [place] Musculoskeletal: edema present Skin: cap refill <2 seconds Deviation from normal: minimally responsive with extremity movement, does not open eyes. - Assessment (1) Palliative care encounter Code(s): Z51.5 - ENCOUNTER FOR PALLIATIVE CARE Current Visit: Yes Status: Acute (2) Acute respiratory failure with hypoxia Code(s): J96.01 - ACUTE RESPIRATORY FAILURE WITH HYPOXIA Current Visit: Yes Status: Acute (3) Adenocarcinoma Code(s): C80.1 - MALIGNANT (PRIMARY) NEOPLASM, UNSPECIFIED Current Visit: Yes Status: Acute (4) Metastatic primary lung cancer Code(s): C34.90 - MALIGNANT NEOPLASM OF UNSP PART OF UNSP BRONCHUS OR LUNG Current Visit: Yes Status: Chronic - Plan Plan: Discussed with Dr Becerra, waiting on further results that are pending. Was to have PET scan. Adenocarcinoma, significant metastases to lungs. Will support patient and family and address Goals of Care as needed depending on recovery. Visited with patient sisters, emotional support. [50] minutes spent on this encounter with >50% of the time in counseling and coordination of care. - ROS Non Response: due to mental status
--- NOTE | 2019-09-14 08:03 | PDOC.MOPN ---
Interval History: Pt is arousable to touch but not name. She does not answer questions or keep eyes open. SHe is on BiPAP satting 94%. - Vital Signs Vital Signs: Vital Signs (12 hours) Temp Pulse Resp BP Pulse Ox 09/14/19 07:10 96 98 09/14/19 07:09 96 14 98 09/14/19 07:00 98.6 F 09/14/19 04:24 91 15 99 09/14/19 04:00 99.6 F 09/14/19 02:25 100 17 97 09/14/19 02:23 100 09/14/19 01:00 99.7 F H 98 09/14/19 00:48 98 09/14/19 00:00 101 H 18 96 09/13/19 22:02 97.8 F 94 15 125/75 91 L Weight Weight 167 lb 10.24 oz Most Recent Monitor Data Heart Rate from ECG 96 NIBP 124/66 NIBP BP-Mean 83 Respiration from ECG 16 SpO2 97 - Physical Exam General: Mild distress. negative: Alert, Oriented x3 HEENT: Other (left cervical/supraclavicular LAD) Lungs: Clear to auscultation, Other Cardiovascular: Other (tachycardic, 3/6 systolic murmur) Abdomen: Soft, No tenderness Extremities: Other (2+ B/L LE edema) - Labs Result Diagrams: 09/14/19 03:14 09/14/19 03:14 Lab results: Laboratory Results - last 24 hr 09/14/19 03:14: WBC 11.5 H, RBC 4.38, Hgb 15.2, Hct 45.9, MCV 105.0 H, MCH 34.8 H, MCHC 33.2, RDW 12.3, Plt Count 401 H, MPV 5.9 L, Neutrophils % 84.4 H, Lymphocytes % 7.8 L, Monocytes % 7.4, Eosinophils % 0.2, Basophils % 0.1, Neutrophils # 9.7 H, Lymphocytes # 0.9 L, Monocytes # 0.9 H, Eosinophils # 0.0, Basophils # 0.0 09/14/19 03:14: Sodium 134 L, Potassium 5.5 H, Chloride 91 L, Carbon Dioxide 36 H, Anion Gap 13, BUN 12, Creatinine 0.55 L, Estimated GFR (MDRD) Greater than 90, Glucose 119 H, Calcium 9.4, Magnesium 2.0 09/13/19 23:12: Specimen Type ARTERIAL, Puncture Site R RADIAL, Bicarbonate Actual 39.5 H, ABG pH 7.27 L, ABG pCO2 88.8 H*, ABG pO2 58.7 L*, ABG O2 Sat Calc /Brian 88.2 L, ABG O2 Content 18.8, ABG Base Excess 8.4 H, ABG Hematocrit 46.0, ABG Hemoglobin 15.5, ABG Oxyhemoglobin 86.3 L, ABG Carboxyhemoglobin 1.9, ABG Methemoglobin 0.30, ABG Deoxyhemoglobin 11.5 H, Alf Test POSITIVE, A-a O2 Gradient 158.280 H, Sodium 137, Potassium 4.41, Chloride 91 L, Ionized Calcium 1.28, Mode of Support 25L HFNC, Inspired O2 46 09/13/19 20:59: POC Glucose 121 H A/P - Problem (1) Adenocarcinoma Current Visit: Yes Code(s): C80.1 - MALIGNANT (PRIMARY) NEOPLASM, UNSPECIFIED Status: Acute - Plan Plan: cont supportive respiratory care f/u lung mutational panel done at [facility] to determine appropriate treatment, although treatment will only be possible if she clinically improves dramatically.
[2019-09-14] MEDS: Amlodipine 5 MG TAB PO SCH ×2 (11:06→18:06)
[2019-09-14] MEDS: clonazePAM 1 MG TAB PO SCH ×3 (11:06→20:29)
[2019-09-14] MEDS: Enoxaparin Sodium 40 MG/0.4 ML SYRINGE SC SCH (11:08)
[2019-09-14] MEDS ORDERED: Albuterol Sulfate 2.5 mg/3 ml Neb NEB PRN (11:53)
[2019-09-14] MEDS: Ketorolac Tromethamine 30 MG/ML VIAL IVP PRN ×2 (15:18→20:25)
--- NOTE | 2019-09-14 16:28 | PRG ---
DATE OF SERVICE: 09/14/2019 SERVICE: Pulmonary Medicine. INTERVAL HISTORY: The patient continues to have a little bit of ongoing abdominal discomfort. Overnight, she was brought down to the ICU. Apparently, her daughter brought in some home Xanax. The patient took a significant amount of this medication, took a very deep nap. Later on, she was found obtunded and unresponsive. An ABG was consistent with acute hypercapnic failure. The patient indicates that she is having abdominal discomfort currently. Otherwise, there has been no interval change to her condition. PHYSICAL EXAMINATION: VITAL SIGNS: Afebrile currently. T-max overnight 99.7. Pulse 104, blood pressure 151/81, respirations 25, saturation 92%, currently on 3 L nasal cannula. GENERAL: The patient is awake and alert, in no apparent distress. LUNGS: Good air entry bilaterally. There are rhonchi and crackles both present. HEART: Normal rate, regular. ABDOMEN: Soft. Tender to palpation throughout, but there is no rebound or guarding. Bowel sounds are active. MUSCULOSKELETAL: No cyanosis or clubbing. Trace pitting is present. NEUROLOGIC: Grossly nonfocal. LABORATORY DATA: WBC 11.5, hemoglobin 15.2, platelets 41,000. Potassium is uptrending to 5.5. Basic metabolic profile is unremarkable except for a bicarb of 36. Magnesium falls within the normal limits. ASSESSMENT: 1. Acute hypoxic respiratory failure. 2. Chronic obstructive pulmonary disease with acute exacerbation. 3. Adenocarcinoma of the lung, widely metastatic. 4. Metabolic encephalopathy, likely secondary to surreptitious use of home benzodiazepines. DISCUSSION AND PLAN: We will give the Xanax some time to come out of her system. Kayexalate will be provided. We will add a lipase and amylase to morning laboratories to make certain that she does not have inflammation of the pancreas. I am doubtful that this would be the case, however. When she wakes up, she will be considered a candidate for transition out of the ICU back to the Oncology floor. Job ID: [id number] [facility]
[2019-09-14] MEDS: Nicotine 14 MG PATCH TD SCH (17:35)
--- NOTE | 2019-09-14 18:17 | PDOC.HOSPP ---
- Subjective Encounter Date: 09/14/19 Encounter Time: 09:00 Subjective: Pt seen for followup re; acute hypoxic and hypercapnic respiratory failure. Lethargic, not answering questions, could not complete ROS. - Objective Vital Signs & Weight: Vital Signs (12 hours) Temp Pulse Resp BP Pulse Ox 09/14/19 18:06 102 H 151/81 H 09/14/19 16:00 99.5 F 09/14/19 13:30 102 H 26 H 93 L 09/14/19 12:00 98.9 F 09/14/19 11:06 86 09/14/19 11:01 86 09/14/19 10:59 90 16 97 09/14/19 08:00 97 09/14/19 07:10 96 98 09/14/19 07:09 96 14 98 09/14/19 07:00 98.6 F Weight Weight 167 lb 10.24 oz Most Recent Monitor Data Heart Rate from ECG 103 NIBP 151/81 NIBP BP-Mean 102 Respiration from ECG 24 SpO2 94 I&O: 09/13/19 09/14/19 09/15/19 06:59 06:59 06:59 Intake Total 685 100 Output Total 600 0 800 Balance 85 0 -700 Result Diagrams: 09/14/19 03:14 09/14/19 03:14 Additional Labs: Accuchecks 09/13/19 20:59 POC Glucose 121 H Labs and MARs reviewed by me EKG Reviewed by me: Yes (Tele: sinus tachycardia) Hospitalist ROS - Medication Medications: Active Medications Generic Name Dose Route Start Last Admin Trade Name Freq PRN Reason Stop Dose Admin Acetaminophen/Codeine Phosphate 2 tab 09/11/19 16:40 09/13/19 16:19 Tylenol #3 PO 2 tab Q6H PRN Administration Severe Pain (7-10) Albuterol/Ipratropium 3 ml 09/14/19 13:00 09/14/19 13:30 Duoneb NEB 3 ml [id number] TRAVIS Administration Alprazolam 0.25 mg 09/13/19 08:45 09/13/19 11:16 Xanax PO 0.25 mg BIDPRN PRN Administration Anxiety Amlodipine Besylate 5 mg 09/12/19 09:00 09/14/19 18:06 Norvasc PO 5 mg QAM TRAVIS Administration Enoxaparin Sodium 40 mg 09/12/19 09:00 09/14/19 11:08 Lovenox SC 40 mg 0900 TRAVIS Administration Ketorolac Tromethamine 15 mg 09/11/19 16:40 09/14/19 15:18 Toradol IVP 09/16/19 16:41 15 mg Q6H PRN Administration Pain Melatonin 3 mg 09/11/19 23:24 09/12/19 20:30 Melatonin PO 3 mg HS PRN Administration Insomnia Nicotine 14 mg 09/11/19 17:00 09/14/19 17:35 Nicoderm Patch TD 14 mg Q24HR TRAVIS Administration Ondansetron HCl 4 mg 09/11/19 16:37 09/13/19 15:11 Zofran IVP 4 mg Q6H PRN Administration Nausea/Vomiting Sodium Chloride 10 ml 09/13/19 21:00 09/14/19 11:08 Flush - Normal Saline IVF 10 ml Q12HR TRAVIS Administration Tramadol HCl 100 mg 09/11/19 16:40 09/13/19 12:10 Ultram PO 100 mg Q6H PRN Administration Severe Pain (7-10) - Exam Eye: anicteric sclera ENT: moist mucosa Neck: supple Heart - other findings: S1, S2, tachy, reg Respiratory: CTAB Gastrointestinal: soft, non-tender Extremities: no cyanosis Musculoskeletal: no muscle wasting Psychiatric: normal affect, normal behavior Hosp A/P (1) Acute respiratory failure with hypoxia and hypercapnia Code(s): J96.01 - ACUTE RESPIRATORY FAILURE WITH HYPOXIA; J96.02 - ACUTE RESPIRATORY FAILURE WITH HYPERCAPNIA Status: Acute (2) Headache Code(s): R51 - HEADACHE Status: Acute (3) Hyperkalemia Code(s): E87.5 - HYPERKALEMIA Status: Acute (4) HTN (hypertension) Code(s): I10 - ESSENTIAL (PRIMARY) HYPERTENSION Status: Chronic (5) Tobacco abuse Code(s): Z72.0 - TOBACCO USE Status: Chronic (6) Metastatic primary lung cancer Code(s): C34.90 - MALIGNANT NEOPLASM OF UNSP PART OF UNSP BRONCHUS OR LUNG Status: Chronic - Plan Acute respiratory failure suspected to be due to surreptitious use of benzodiazepines. Administer kayexalate and albuterol neb for hyperkalemia. Recheck potassium. Pt is now in CCU on NIPPV. Continue nicotine patch. Continue amlodipine. Transfer to oncology floor.
[2019-09-14] MEDS ORDERED: Albuterol Sulfate 2.5 mg/3 ml Neb NEB SCH (19:00)
[2019-09-14] MEDS: Metoclopramide HCl 10 MG/2 ML VIAL IVP PRN (20:42)
[2019-09-15] MEDS: ALPRAZolam 0.25 MG TAB PO PRN (00:11)
[2019-09-15] MEDS: traMADol HCl 50 MG TAB PO PRN ×2 (00:11→15:42)
--- NOTE | 2019-09-15 00:22 | CON ---
DATE OF CONSULTATION: 09/14/2019 CONSULTING PHYSICIAN: Hospitalist Service. IMPRESSION: 1. Headache. 2. Lung cancer. PLAN: Continue Toradol with the addition of Reglan as needed for pain and nausea. HISTORY OF PRESENT ILLNESS: Ms. Macdonald is a 59-year-old white female with a known history of anxiety and lung cancer. She apparently overdosed on Xanax prior to admission. She was quite obtunded. Nurse reports she has steadily regained consciousness. She complains of some diffuse pain in her head and chest. She is bit difficult to get accurate description of her condition. She was gasping and appearing a bit restless. Her saturations were 92% on nasal cannula. She does not report any cranial tenderness. She denies that there is any vision disturbance. She denies having headaches prior to this and reports that this headache has been present for 2 weeks. She had an MRI of the brain done, which did not show any evidence of metastatic disease. PAST MEDICAL HISTORY: As listed above. ALLERGIES: LIDOCAINE, LITHIUM. SOCIAL HISTORY: Positive for tobacco. FAMILY HISTORY: Noncontributory. REVIEW OF SYSTEMS: Ten-system review of systems is otherwise negative. PHYSICAL EXAMINATION: VITAL SIGNS: Pulse 113, blood pressure of 133/77, sats 94%, respirations 33. HEENT: Pupils are equal and reactive. Conjunctivae clear. Oropharynx clear. Cranium, nontender to palpation. NECK: Supple. NEUROLOGIC: She is awake and would attempt to answer some questions. Her speech appears to be fluent and clear. There is no facial asymmetry. She has equal strength. No abnormal movements were seen. Gait was not tested. IMAGING STUDIES: EKG shows sinus tachycardia. SUMMARY: This is a middle-aged woman with complaints of headache, nothing specific on her imaging or her exam. I would continue nonnarcotic approach given that she has become lethargic with morphine. She could try Tylenol with Codeine as well. Job ID: [id number]
[2019-09-15] MEDS: Ketorolac Tromethamine 30 MG/ML VIAL IVP PRN ×2 (02:17→20:32)
[2019-09-15] MEDS: Amlodipine 5 MG TAB PO SCH (08:20)
[2019-09-15] MEDS: clonazePAM 1 MG TAB PO SCH ×2 (08:20→11:33)
[2019-09-15] MEDS: Enoxaparin Sodium 40 MG/0.4 ML SYRINGE SC SCH (08:21)
--- NOTE | 2019-09-15 15:12 | PDOC.HOSPP ---
- Subjective Encounter Date: 09/15/19 Encounter Time: 10:40 Subjective: Pt seen for followup re; respiratory failure. On BiPAP, not answering questions , could not complete ROS. - Objective Vital Signs & Weight: Vital Signs (12 hours) Temp Pulse Resp BP Pulse Ox 09/15/19 13:20 95 09/15/19 13:18 105 H 25 H 09/15/19 11:10 98.8 F 09/15/19 08:20 90 140/79 09/15/19 08:00 96 09/15/19 07:48 98.2 F 09/15/19 06:44 86 21 H 98 09/15/19 03:37 98.6 F Weight Weight 174 lb 2.643 oz Most Recent Monitor Data Heart Rate from ECG 96 NIBP 128/80 NIBP BP-Mean 96 Respiration from ECG 20 SpO2 95 I&O: 09/14/19 09/15/19 09/16/19 06:59 06:59 06:59 Intake Total 430 Output Total 0 1275 Balance 0 -845 Result Diagrams: 09/14/19 03:14 09/14/19 03:14 Additional Labs: Labs and MARs reviewed by me EKG Reviewed by me: Yes (Tele: NSR) Hospitalist ROS - Medication Medications: Active Medications Generic Name Dose Route Start Last Admin Trade Name Freq PRN Reason Stop Dose Admin Acetaminophen 650 mg 09/11/19 16:37 09/15/19 00:10 Tylenol PO 650 mg Q4H PRN Administration Headache/Fever/Mild Pain (1-3) Acetaminophen/Codeine Phosphate 2 tab 09/11/19 16:40 09/13/19 16:19 Tylenol #3 PO 2 tab Q6H PRN Administration Severe Pain (7-10) Albuterol/Ipratropium 3 ml 09/14/19 13:00 09/15/19 13:18 Duoneb NEB 3 ml [id number] TRAVIS Administration Alprazolam 0.25 mg 09/13/19 08:45 09/15/19 00:11 Xanax PO 0.25 mg BIDPRN PRN Administration Anxiety Amlodipine Besylate 5 mg 09/12/19 09:00 09/15/19 08:20 Norvasc PO 5 mg QAM TRAVIS Administration Clonazepam 1 mg 09/14/19 21:00 09/15/19 11:33 Klonopin PO Not Given TID TRAVIS Enoxaparin Sodium 40 mg 09/12/19 09:00 09/15/19 08:21 Lovenox SC 40 mg 0900 [facility] Administration Ketorolac Tromethamine 15 mg 09/11/19 16:40 09/15/19 02:17 Toradol IVP 09/16/19 16:41 15 mg Q6H PRN Administration Pain Melatonin 3 mg 09/11/19 23:24 09/12/19 20:30 Melatonin PO 3 mg HS PRN Administration Insomnia Metoclopramide HCl 10 mg 09/14/19 18:50 09/14/19 20:42 Reglan IVP 10 mg Q6H PRN Administration HEADACHE OR NAUSEA Nicotine 14 mg 09/11/19 17:00 09/14/19 17:35 Nicoderm Patch TD 14 mg Q24HR TRAVIS Administration Ondansetron HCl 4 mg 09/11/19 16:37 09/13/19 15:11 Zofran IVP 4 mg Q6H PRN Administration Nausea/Vomiting Sodium Chloride 10 ml 09/13/19 21:00 09/15/19 08:21 Flush - Normal Saline IVF 10 ml Q12HR TRAVIS Administration Tramadol HCl 100 mg 09/11/19 16:40 09/15/19 00:11 Ultram PO 100 mg Q6H PRN Administration Severe Pain (7-10) - Exam General - other findings: [place]: anicteric sclera ENT: moist mucosa Neck: supple Heart: RRR Respiratory: CTAB Gastrointestinal: soft, non-tender Extremities: no cyanosis Psychiatric: lethargic Hosp A/P (1) Acute respiratory failure with hypoxia and hypercapnia Code(s): J96.01 - ACUTE RESPIRATORY FAILURE WITH HYPOXIA; J96.02 - ACUTE RESPIRATORY FAILURE WITH HYPERCAPNIA Status: Acute (2) Headache Code(s): R51 - HEADACHE Status: Acute (3) Hyperkalemia Code(s): E87.5 - HYPERKALEMIA Status: Acute (4) HTN (hypertension) Code(s): I10 - ESSENTIAL (PRIMARY) HYPERTENSION Status: Chronic (5) Tobacco abuse Code(s): Z72.0 - TOBACCO USE Status: Chronic (6) Metastatic primary lung cancer Code(s): C34.90 - MALIGNANT NEOPLASM OF UNSP PART OF UNSP BRONCHUS OR LUNG Status: Chronic - Plan Acute respiratory failure improved. Pt used BiPAP last night. Check Chrem-7, BMP Continue nicotine patch. Continue amlodipine. Change clonazepam to PRN. Sister updated over the phone.
[2019-09-15] MEDS: Nicotine 14 MG PATCH TD SCH (15:42)
[2019-09-15 16:19] LABS: #Eosinphils 0.1 thou/uL (0.0-0.7); #Lymphocytes 1.2 thou/uL (1.20-3.40); #Monocytes 0.9 thou/uL (0.11-0.59); #Neutrophils 8.8 thou/uL (1.40-6.50); %Basophils 0.4 % (0.0-1.0); %Eosinophils 1.1 % (0.0-10.0); %Lymphocytes 10.7 % (21.0-51.0); %Monocytes 8.5 % (0.0-10.0); %Neutrophils 79.3 % (42.0-75.0); Hemoglobin 15.3 g/dL (12.0-16.0); Mean Corpuscular HGB CONC 33.4 g/dL (32.0-36.0); Mean Corpuscular Hemoglobin 34.6 pg (27.0-31.0); Platelet Count 336 thou/uL (130-400); RBC Distribution Width 12.4 % (11.5-14.5); Red Blood Cell (RBC) Count 4.42 mill/uL (4.20-5.40); White Blood Cell (WBC) Count 11.1 thou/uL (4.8-10.8)
[2019-09-15 16:30] LABS: Anion Gap 15 mmol/L (10-20); BUN (Urea Nitrogen) 17 mg/dL (9.8-20.1); Calc. Creatinine Clearance 138 mL/min (70-130); Calcium 9.2 mg/dL (7.8-10.44); Carbon Dioxide 30 mmol/L (22-29); Chloride 96 mmol/L (98-107); Estimated GFR-MDRD Greater than 90; Glucose 117 mg/dL (70-105); Potassium 3.9 mmol/L (3.5-5.1); Sodium 137 mmol/L (136-145)
--- NOTE | 2019-09-15 17:01 | PRG ---
DATE OF SERVICE: 09/15/2019 SERVICE: Pulmonary Medicine. INTERVAL HISTORY: The patient is waking up just fine today. Denies any current chest discomfort, nausea, vomiting, fevers, or chills. She is a little bit sleepy. That being said, with gentle stimulation, she tells me that she has abdominal discomfort. Otherwise, there has been no interval change to her condition. PHYSICAL EXAMINATION: VITAL SIGNS: Afebrile, pulse 96, blood pressure 128/80, respirations 20, and saturation 95%, currently on 30% FiO2 delivered via BiPAP at 12. HEENT: Normocephalic and atraumatic. Sclerae white. Conjunctivae pink. Oral mucosa is moist without lesions. LUNGS: Decent air entry. Rhonchi are present. The wheezing have improved. No crackles are appreciated. HEART: Normal rate. Regular. ABDOMEN: Soft. Tender to palpation throughout, though there is no rebound or guarding present. Bowel sounds are active. MUSCULOSKELETAL: No cyanosis or clubbing. She has diffuse discomfort with palpation. There is only trace pitting, however. LABORATORY DATA: WBC 11.1, hemoglobin 15.3, and platelets 336,000. ASSESSMENT: 1. Acute on chronic hypoxic respiratory failure. 2. Chronic obstructive pulmonary disease with acute exacerbation. 3. Adenocarcinoma of the lung, widely metastatic. 4. Metabolic encephalopathy, likely secondary to surreptitious use of home benzodiazepines, resolved. DISCUSSION AND PLAN: We will give her a long BiPAP break today. If she meets criteria, she can be considered for transition back to the floor. We will continue supportive care including antibiotics, nebulized medications, and steroids. Pulmonary will follow. Job ID: [id number]
[2019-09-15] MEDS: Metoclopramide HCl 10 MG/2 ML VIAL IVP PRN (20:32)
[2019-09-15] MEDS: clonazePAM 1 MG TAB PO PRN (20:33)
[2019-09-16] MEDS: Ketorolac Tromethamine 30 MG/ML VIAL IVP PRN ×3 (02:32→14:23)
[2019-09-16] MEDS: ALPRAZolam 0.25 MG TAB PO PRN ×2 (02:32→21:42)
[2019-09-16 03:20] LABS: #Basophils 0.1 thou/uL (0.0-0.2); #Eosinphils 0.1 thou/uL (0.0-0.7); #Lymphocytes 1.1 thou/uL (1.20-3.40); #Monocytes 1.1 thou/uL (0.11-0.59); #Neutrophils 8.1 thou/uL (1.40-6.50); %Basophils 0.6 % (0.0-1.0); %Eosinophils 1.2 % (0.0-10.0); %Lymphocytes 10.8 % (21.0-51.0); %Monocytes 10.2 % (0.0-10.0); %Neutrophils 77.2 % (42.0-75.0); Hemoglobin 14.6 g/dL (12.0-16.0); Mean Corpuscular HGB CONC 32.9 g/dL (32.0-36.0); Mean Corpuscular Hemoglobin 34.3 pg (27.0-31.0); Mean Platelet Volume 5.9 fL (7.4-10.4); Platelet Count 373 thou/uL (130-400); RBC Distribution Width 12.3 % (11.5-14.5); Red Blood Cell (RBC) Count 4.24 mill/uL (4.20-5.40); White Blood Cell (WBC) Count 10.5 thou/uL (4.8-10.8)
[2019-09-16 03:41] LABS: Anion Gap 14 mmol/L (10-20); BUN (Urea Nitrogen) 19 mg/dL (9.8-20.1); Calc. Creatinine Clearance 155 mL/min (70-130); Calcium 9.5 mg/dL (7.8-10.44); Carbon Dioxide 33 mmol/L (22-29); Chloride 94 mmol/L (98-107); Estimated GFR-MDRD Greater than 90; Glucose 99 mg/dL (70-105); Potassium 3.8 mmol/L (3.5-5.1); Sodium 137 mmol/L (136-145)
[2019-09-16] MEDS: Ondansetron PF 4 MG/2 ML Vial IVP PRN ×2 (04:25→22:35)
[2019-09-16] MEDS: Acetaminophen/Codeine 30-300mg Tablet PO PRN ×3 (04:25→17:36)
[2019-09-16] MEDS: Amlodipine 5 MG TAB PO SCH ×2 (08:40→12:45)
[2019-09-16] MEDS: Enoxaparin Sodium 40 MG/0.4 ML SYRINGE SC SCH (08:45)
[2019-09-16] MEDS: Metoclopramide HCl 10 MG/2 ML VIAL IVP PRN (08:49)
--- NOTE | 2019-09-16 09:53 | PRG ---
DATE OF SERVICE: 09/16/2019 SERVICE: Pulmonary Medicine. INTERVAL HISTORY: The patient is doing fine from respiratory standpoint. She has been on a BiPAP trial since early this morning. She denies any current shortness of breath and is talking in full sentences. She is awake and alert and oriented. She does not appear to be in any distress. This morning, she seems to be a little bit frustrated or upset about not being back in the oncology floor. PHYSICAL EXAMINATION: VITAL SIGNS: Afebrile, pulse 104, blood pressure 102/68, respirations 20, and saturation 93% on 3 L nasal cannula. GENERAL: The patient is awake and alert, in no apparent distress. LUNGS: Good air entry today. Rhonchi are present. There is a prolonged expiratory phase, but I do not hear the wheezing or crackles today. HEART: Normal rate. Regular. ABDOMEN: Soft, nontender, and nondistended. Bowel sounds are positive. MUSCULOSKELETAL: No cyanosis or clubbing. No pitting in the bilateral lower extremities. NEUROLOGIC: Grossly nonfocal. LABORATORY DATA: WBC 10.5, hemoglobin 14.6, and platelets 373,000. Basic metabolic profile is unremarkable. Urinalysis is negative. ASSESSMENT: 1. [id number] hypoxic respiratory failure. 2. Chronic obstructive pulmonary disease with acute exacerbation. 3. Adenocarcinoma with widely metastatic changes to the lung. 4. Metabolic encephalopathy, resolved. DISCUSSION AND PLAN: The patient is doing fine from respiratory standpoint. BiPAP will be discontinued. She is stable for transition out of the ICU to the oncology floor. Steroids and antibiotics can be discontinued after a total duration of 7 days. Once she leaves the IMCU, she will have no further requirements for inpatient Pulmonary or Critical Care opinion, and I will sign off. Please call with additional questions or concerns through time. Job ID: [id number]
--- NOTE | 2019-09-16 10:41 | PDOC.MOPN ---
Interval History: alert, breathing improved. - Vital Signs Vital Signs: Vital Signs (12 hours) Temp Pulse Resp Pulse Ox 09/16/19 08:00 93 L 09/16/19 07:47 97.8 F 09/16/19 07:43 101 H 20 91 L 09/16/19 03:28 98.3 F 09/16/19 00:09 103 H 25 H 94 L 09/15/19 23:33 98.5 F Weight Weight 169 lb 15.622 oz Most Recent Monitor Data Heart Rate from ECG 104 NIBP 102/68 NIBP BP-Mean 79 Respiration from ECG 20 SpO2 95 - Physical Exam General: Alert, Oriented x3, No acute distress HEENT: Atraumatic, PERRLA, EOMI, Mucous membr. moist/pink Lungs: Other (diminished) Cardiovascular: Regular rate Abdomen: Normal bowel sounds Extremities: No clubbing, No cyanosis, No edema, Normal pulses, No tenderness/ swelling Skin: No rashes, No breakdown, No significant lesion Neurological: Normal speech - Labs Result Diagrams: 09/16/19 03:10 09/16/19 03:10 Lab results: Laboratory Results - last 24 hr 09/16/19 03:10: WBC 10.5, RBC 4.24, Hgb 14.6, Hct 44.3, MCV 104.0 H, MCH 34.3 H , MCHC 32.9, RDW 12.3, Plt Count 373, MPV 5.9 L, Neutrophils % 77.2 H, Lymphocytes % 10.8 L, Monocytes % 10.2 H, Eosinophils % 1.2, Basophils % 0.6, Neutrophils # 8.1 H, Lymphocytes # 1.1 L, Monocytes # 1.1 H, Eosinophils # 0.1, Basophils # 0.1 09/16/19 03:10: Sodium 137, Potassium 3.8, Chloride 94 L, Carbon Dioxide 33 H, Anion Gap 14, BUN 19, Creatinine 0.50 L, Estimated GFR (MDRD) Greater than 90, Glucose 99, Calcium 9.5 09/15/19 16:08: WBC 11.1 H, RBC 4.42, Hgb 15.3, Hct 45.8, MCV 104.0 H, MCH 34.6 H, MCHC 33.4, RDW 12.4, Plt Count 336, MPV 6.0 L, Neutrophils % 79.3 H, Lymphocytes % 10.7 L, Monocytes % 8.5, Eosinophils % 1.1, Basophils % 0.4, Neutrophils # 8.8 H, Lymphocytes # 1.2, Monocytes # 0.9 H, Eosinophils # 0.1, Basophils # 0.0 09/15/19 16:08: Sodium 137, Potassium 3.9, Chloride 96 L, Carbon Dioxide 30 H, Anion Gap 15, BUN 17, Creatinine 0.56 L, Estimated GFR (MDRD) Greater than 90, Glucose 117 H, Calcium 9.2 Status: lab reviewed by me A/P - Problem (1) Adenocarcinoma Current Visit: Yes Code(s): C80.1 - MALIGNANT (PRIMARY) NEOPLASM, UNSPECIFIED Status: Acute - Plan Plan: Plan: cont supportive respiratory care Encouraged to reschedule PET scan ordered by Dr. Curiel Follow-up Oncology Dr. Curiel at [facility]. She was given our clinic info and can see us outpt if she choses.
--- NOTE | 2019-09-16 13:12 | PDOC.HOSPP ---
- Subjective Encounter Date: 09/16/19 Encounter Time: 12:00 Subjective: Pt seen for followup re: acute hypoxic respiratory failure. Feels better today. - Objective Vital Signs & Weight: Vital Signs (12 hours) Temp Pulse Resp Pulse Ox 09/16/19 12:45 101 H 09/16/19 11:28 98.2 F 09/16/19 08:00 93 L 09/16/19 07:47 97.8 F 09/16/19 07:43 101 H 20 91 L 09/16/19 03:28 98.3 F Weight Weight 169 lb 15.622 oz Most Recent Monitor Data Heart Rate from ECG 103 NIBP 108/72 NIBP BP-Mean 84 Respiration from ECG 21 SpO2 92 I&O: 09/15/19 09/16/19 09/17/19 06:59 06:59 06:59 Intake Total 430 490 Output Total 1275 325 Balance -845 165 Result Diagrams: 09/16/19 03:10 09/16/19 03:10 Additional Labs: Labs and MARs reviewed by me EKG Reviewed by me: Yes (tele: NSR) Hospitalist ROS - Review of Systems Respiratory: reports: cough, dry, SOB with excertion. denies: shortness of breath, hemoptysis, pleuritic pain, sputum, wheezing Cardiovascular: denies: chest pain, palpitations, orthopnea, paroxysmal noc. dyspnea, edema, light headedness Genitourinary: reports: retention - Medication Medications: Active Medications Generic Name Dose Route Start Last Admin Trade Name Freq PRN Reason Stop Dose Admin Acetaminophen 650 mg 09/11/19 16:37 09/15/19 00:10 Tylenol PO 650 mg Q4H PRN Administration Headache/Fever/Mild Pain (1-3) Acetaminophen/Codeine Phosphate 2 tab 09/11/19 16:40 09/16/19 12:43 Tylenol #3 PO 2 tab Q6H PRN Administration Severe Pain (7-10) Albuterol/Ipratropium 3 ml 09/14/19 13:00 09/16/19 07:43 Duoneb NEB 3 ml [id number] TRAVIS Administration Alprazolam 0.25 mg 09/13/19 08:45 09/16/19 02:32 Xanax PO 0.25 mg BIDPRN PRN Administration Anxiety Amlodipine Besylate 5 mg 09/12/19 09:00 09/16/19 12:45 Norvasc PO Not Given QAM TRAVIS Clonazepam 1 mg 09/15/19 15:30 09/15/19 20:33 Klonopin PO 1 mg TIDPRN PRN Administration Anxiety Enoxaparin Sodium 40 mg 09/12/19 09:00 09/16/19 08:45 Lovenox SC 40 mg 0900 TRAVIS Administration Ketorolac Tromethamine 15 mg 09/11/19 16:40 09/16/19 08:37 Toradol IVP 09/16/19 16:41 15 mg Q6H PRN Administration Pain Melatonin 3 mg 09/11/19 23:24 09/12/19 20:30 Melatonin PO 3 mg HS PRN Administration Insomnia Metoclopramide HCl 10 mg 09/14/19 18:50 09/16/19 08:49 Reglan IVP 10 mg Q6H PRN Administration HEADACHE OR NAUSEA Nicotine 14 mg 09/11/19 17:00 09/15/19 15:42 Nicoderm Patch TD 14 mg Q24HR TRAVIS Administration Ondansetron HCl 4 mg 09/11/19 16:37 09/16/19 04:25 Zofran IVP 4 mg Q6H PRN Administration Nausea/Vomiting Sodium Chloride 10 ml 09/13/19 21:00 09/16/19 08:42 Flush - Normal Saline IVF 10 ml Q12HR TRAVIS Administration Tramadol HCl 100 mg 09/11/19 16:40 09/15/19 15:42 Ultram PO 100 mg Q6H PRN Administration Severe Pain (7-10) - Exam General Appearance: awake alert Eye: anicteric sclera ENT: moist mucosa Neck: symmetric Neck - other findings: lymphadenopathy + Heart: RRR Respiratory: CTAB Gastrointestinal: soft, non-tender Extremities: no cyanosis Psychiatric: normal affect, normal behavior Hosp A/P (1) Acute respiratory failure with hypoxia and hypercapnia Code(s): J96.01 - ACUTE RESPIRATORY FAILURE WITH HYPOXIA; J96.02 - ACUTE RESPIRATORY FAILURE WITH HYPERCAPNIA Status: Acute (2) Headache Code(s): R51 - HEADACHE Status: Acute (3) Urinary retention Code(s): R33.9 - RETENTION OF URINE, UNSPECIFIED Status: Acute (4) HTN (hypertension) Code(s): I10 - ESSENTIAL (PRIMARY) HYPERTENSION Status: Chronic (5) Tobacco abuse Code(s): Z72.0 - TOBACCO USE Status: Chronic (6) Metastatic primary lung cancer Code(s): C34.90 - MALIGNANT NEOPLASM OF UNSP PART OF UNSP BRONCHUS OR LUNG Status: Chronic (7) Hyperkalemia Code(s): E87.5 - HYPERKALEMIA Status: Resolved - Plan Acute respiratory failure improved. Headache improved. Levi catheter placed yesterday for urinary retention. Hyperkalemia resolved. Continue nicotine patch. Continue amlodipine. Change clonazepam to PRN. No plans for chemotherapy at this time. Pt to follow up with her oncologist. PT eval/tx.
[2019-09-16] MEDS: Benzonatate 100 MG CAP PO SCH ×2 (15:39→21:41)
[2019-09-16] MEDS ORDERED: Aspirin 325 MG TAB ONE (17:35)
[2019-09-16 18:12] LABS: Troponin I 0.017 ng/mL (< 0.028)
[2019-09-16] MEDS ORDERED: Dihydroergotamine Mesylate 1 MG/ML AMP SLOW IVP SCH (18:30)
[2019-09-16] MEDS: Nicotine 14 MG PATCH TD SCH (19:33)
[2019-09-16 19:42] VITALS: BP 113/56
[2019-09-16] MEDS ORDERED: Fioricet 325/50/40 mg Tablet PO SCH (21:45)
[2019-09-16] MEDS: Melatonin 3 MG TAB PO PRN (22:32)
[2019-09-16] MEDS: traMADol HCl 50 MG TAB PO PRN (22:32)
[2019-09-16 23:56] LABS: Troponin I 0.017 ng/mL (< 0.028)
[2019-09-17] MEDS ORDERED: Morphine 2 MG/ML SYRINGE SLOW IVP SCH (02:15)
[2019-09-17 04:15] LABS: #Eosinphils 0.1 thou/uL (0.0-0.7); #Lymphocytes 0.7 thou/uL (1.20-3.40); #Neutrophils 8.9 thou/uL (1.40-6.50); %Basophils 0.4 % (0.0-1.0); %Eosinophils 0.7 % (0.0-10.0); %Lymphocytes 6.6 % (21.0-51.0); %Monocytes 9.2 % (0.0-10.0); %Neutrophils 83.1 % (42.0-75.0); Hemoglobin 15.5 g/dL (12.0-16.0); Mean Corpuscular HGB CONC 32.7 g/dL (32.0-36.0); Mean Corpuscular Hemoglobin 34.6 pg (27.0-31.0); Mean Platelet Volume 5.9 fL (7.4-10.4); Platelet Count 371 thou/uL (130-400); RBC Distribution Width 12.1 % (11.5-14.5); Red Blood Cell (RBC) Count 4.47 mill/uL (4.20-5.40); White Blood Cell (WBC) Count 10.7 thou/uL (4.8-10.8)
[2019-09-17 04:35] LABS: Anion Gap 11 mmol/L (10-20); BUN (Urea Nitrogen) 15 mg/dL (9.8-20.1); Calc. Creatinine Clearance 148 mL/min (70-130); Calcium 9.6 mg/dL (7.8-10.44); Carbon Dioxide 33 mmol/L (22-29); Chloride 95 mmol/L (98-107); Estimated GFR-MDRD Greater than 90; Glucose 115 mg/dL (70-105); Sodium 135 mmol/L (136-145)
[2019-09-17 06:30] LABS: Troponin I 0.014 ng/mL (< 0.028)
[2019-09-17] MEDS: Benzonatate 100 MG CAP PO SCH ×2 (09:03→17:06)
[2019-09-17] MEDS: Enoxaparin Sodium 40 MG/0.4 ML SYRINGE SC SCH (09:03)
[2019-09-17] MEDS: Amlodipine 5 MG TAB PO SCH (09:03)
[2019-09-17] MEDS: Acetaminophen/Codeine 30-300mg Tablet PO PRN ×2 (09:05→17:35)
--- NOTE | 2019-09-17 16:42 | EKG ---
Test Reason : CP Blood Pressure : / mmHG Vent. Rate : 101 BPM Atrial Rate : 101 BPM P-R Int : 170 ms QRS Dur : 084 ms QT Int : 356 ms P-R-T Axes : 083 026 058 degrees QTc Int : 461 ms Sinus tachycardia Biatrial enlargement Possible Inferior infarct , age undetermined Abnormal ECG When compared with ECG of 02-MAR-2018 09:04, Minimal criteria for Anterior infarct are no longer Present Borderline criteria for Inferior infarct are now Present Confirmed by DR. Kennedy FULLER ([id number]) on 09/17/2019 4:42:13 PM Referred By: CARL Confirmed By:DR. Kennedy FULLER
--- NOTE | 2019-09-17 17:14 | PRG ---
DATE OF SERVICE: 09/17/2019 INTERVAL HISTORY: The patient is doing poorly from respiratory standpoint. She is on 2 L nasal cannula most of yesterday, but in toward the afternoon, she started having headache again, her oxygen requirement started going up. Ultimately, she was given multiple doses of Tylenol No. 3, Fioricet, morphine, as well as other centrally acting medications like Benadryl. She took a deep sleep, but over the course of the evening, her oxygen saturations dropped. She was put on high-flow nasal cannula. Currently, she is on 60% FiO2 delivered with a flow of 60 L/minute. She is able to talk in sentences, but she is once again somnolent. She will wake up and answer questions appropriately, not back off to sleep. PHYSICAL EXAMINATION: VITAL SIGNS: Afebrile, pulse 97, blood pressure 109/75, respirations 23, saturation 92%, currently on 60% FiO2 delivered via high-flow nasal cannula. GENERAL: The patient is slightly encephalopathic. She is somnolent. HEENT: Normocephalic and atraumatic. Sclerae are white. Conjunctivae are pink. Oral mucosa is moist without lesions. LUNGS: Decent air entry. Rhonchi and crackles are both present. HEART: Normal rate and regular. ABDOMEN: Soft, nontender, nondistended. Bowel sounds are positive. MUSCULOSKELETAL: No cyanosis or clubbing. There is no pitting in the bilateral lower extremities. NEUROLOGIC: Grossly nonfocal. LABORATORY DATA: WBC 10.7, hemoglobin 15.5, platelets 371,000. Sodium 135. Basic metabolic profile is otherwise unremarkable. Troponin is negative x3. Calcium is 9.6. Urinalysis is negative. ASSESSMENT: 1. Acute hypoxic respiratory failure with recurrence. 2. Status chronic obstructive pulmonary disease with acute exacerbation. 3. Adenocarcinoma, widely metastatic. 4. Metabolic encephalopathy, waxing and waning. DISCUSSION AND PLAN: 1. I will get a repeat chest x-ray current. Supportive care including antibiotics, nebulized medications, and steroids will be continued. Hopefully, we will be able to identify new underlying issue that will be able to intervene effectively on. Critical Care will follow. Job ID: [id number]
[2019-09-17] MEDS: Piperacillin/Tazobactam 3.375 GM in Sodium Chloride 0.9% 100 ML IVPB SCH (17:35)
[2019-09-17] MEDS: Nicotine 14 MG PATCH TD SCH (17:36)
[2019-09-17] MEDS: traMADol HCl 50 MG TAB PO PRN (17:39)
--- NOTE | 2019-09-17 17:45 | RAD ---
EXAM: XR Chest 1 View Portable PROVIDED CLINICAL HISTORY: Hypoxia COMPARISON: 05/13/2014 FINDINGS: The cardiac silhouette appears enlarged. There are innumerable bilateral pulmonary parenchymal opacit ies, some of which have a nodular configuration. Blunting of each costophrenic angle may reflect pleural fluid. There is no evidence for pneumothorax. IMPRESSION: Diffuse bilateral parenchymal opacities, some of which have a nodular configuration suggesting metast atic disease. Multifocal pneumonia could also be considered.
--- NOTE | 2019-09-17 19:14 | PDOC.HOSPP ---
- Subjective Encounter Date: 09/17/19 Encounter Time: 10:00 Subjective: Pt seen for followup re: acute respiratory failure. Feels sluightly better, still has headache. - Objective Vital Signs & Weight: Vital Signs (12 hours) Pulse Resp Pulse Ox 09/17/19 13:08 97 26 H 09/17/19 09:03 101 H 09/17/19 07:42 93 L Weight Weight 171 lb 11.841 oz Most Recent Monitor Data Heart Rate from ECG 100 NIBP 120/101 NIBP BP-Mean 107 Respiration from ECG 24 SpO2 97 I&O: 09/16/19 09/17/19 09/18/19 06:59 06:59 06:59 Intake Total 490 422 250 Output Total 325 625 350 Balance 165 -203 -100 Result Diagrams: 09/17/19 03:21 09/17/19 03:21 Additional Labs: Labs and MARs reviewed by me EKG Reviewed by me: Yes (Tele: NSR) Hospitalist ROS - Review of Systems Constitutional: denies: fever, chills, sweats, weakness, malaise Respiratory: reports: cough, dry. denies: shortness of breath, hemoptysis, SOB with excertion, pleuritic pain, sputum, wheezing Neurological: reports: other (headache) - Medication Medications: Active Medications Generic Name Dose Route Start Last Admin Trade Name Freq PRN Reason Stop Dose Admin Acetaminophen 650 mg 09/11/19 16:37 09/15/19 00:10 Tylenol PO 650 mg Q4H PRN Administration Headache/Fever/Mild Pain (1-3) Acetaminophen/Codeine Phosphate 2 tab 09/11/19 16:40 09/17/19 09:05 Tylenol #3 PO 2 tab Q6H PRN Administration Severe Pain (7-10) Albuterol/Ipratropium 3 ml 09/14/19 13:00 09/17/19 13:08 Duoneb NEB 3 ml [id number] TRAVIS Administration Alprazolam 0.25 mg 09/13/19 08:45 09/16/19 21:42 Xanax PO 0.25 mg BIDPRN PRN Administration Anxiety Amlodipine Besylate 5 mg 09/12/19 09:00 09/17/19 09:03 Norvasc PO 5 mg QAM TRAVIS Administration Clonazepam 1 mg 09/15/19 15:30 09/15/19 20:33 Klonopin PO 1 mg TIDPRN PRN Administration Anxiety Enoxaparin Sodium 40 mg 09/12/19 09:00 09/17/19 09:03 Lovenox SC 40 mg 0900 TRAVIS Administration Piperacillin Sod/Tazobactam 100 mls @ 200 mls/hr 09/17/19 18:00 09/17/19 17: 35 Sod 3.375 gm/ Sodium Chloride IVPB 100 mls Q6HR TRAVIS Administration Melatonin 3 mg 09/11/19 23:24 09/16/19 22:32 Melatonin PO 3 mg HS PRN Administration Insomnia Metoclopramide HCl 10 mg 09/14/19 18:50 09/16/19 08:49 Reglan IVP 10 mg Q6H PRN Administration HEADACHE OR NAUSEA Nicotine 14 mg 09/11/19 17:00 09/17/19 17:36 Nicoderm Patch TD 14 mg Q24HR TRAVIS Administration Ondansetron HCl 4 mg 09/11/19 16:37 09/16/19 22:35 Zofran IVP 4 mg Q6H PRN Administration Nausea/Vomiting Sodium Chloride 10 ml 09/13/19 21:00 09/17/19 09:09 Flush - Normal Saline IVF 10 ml Q12HR TRAVIS Administration Tramadol HCl 100 mg 09/11/19 16:40 09/17/19 17:39 Ultram PO 100 mg Q6H PRN Administration Severe Pain (7-10) - Exam General - other findings: Obese Eye: anicteric sclera ENT: moist mucosa Neck: supple Heart: RRR Respiratory: CTAB Gastrointestinal: soft, non-tender Skin: no rashes Psychiatric: normal affect Hosp A/P (1) Acute respiratory failure with hypoxia and hypercapnia Code(s): J96.01 - ACUTE RESPIRATORY FAILURE WITH HYPOXIA; J96.02 - ACUTE RESPIRATORY FAILURE WITH HYPERCAPNIA Status: Acute (2) Headache Code(s): R51 - HEADACHE Status: Acute (3) Urinary retention Code(s): R33.9 - RETENTION OF URINE, UNSPECIFIED Status: Acute (4) HTN (hypertension) Code(s): I10 - ESSENTIAL (PRIMARY) HYPERTENSION Status: Chronic (5) Tobacco abuse Code(s): Z72.0 - TOBACCO USE Status: Chronic (6) Metastatic primary lung cancer Code(s): C34.90 - MALIGNANT NEOPLASM OF UNSP PART OF UNSP BRONCHUS OR LUNG Status: Chronic (7) Hyperkalemia Code(s): E87.5 - HYPERKALEMIA Status: Resolved - Plan Renew toradol IV. Continue high-fklow oxygen. Continue nicotine patch. Continue amlodipine. Change clonazepam to PRN. Pt to follow up with her oncologist.
[2019-09-17] MEDS: Metoclopramide HCl 10 MG/2 ML VIAL IVP PRN (20:57)
[2019-09-17] MEDS: Ketorolac Tromethamine 30 MG/ML VIAL IVP PRN (20:57)
[2019-09-18] MEDS: Piperacillin/Tazobactam 3.375 GM in Sodium Chloride 0.9% 100 ML IVPB SCH ×5 (00:27→23:58)
[2019-09-18] MEDS: Acetaminophen/Codeine 30-300mg Tablet PO PRN (01:08)
[2019-09-18] MEDS: Ketorolac Tromethamine 30 MG/ML VIAL IVP PRN ×3 (04:08→20:15)
[2019-09-18 04:28] LABS: Anion Gap 10 mmol/L (10-20); BUN (Urea Nitrogen) 16 mg/dL (9.8-20.1); Calc. Creatinine Clearance 153 mL/min (70-130); Calcium 9.4 mg/dL (7.8-10.44); Carbon Dioxide 36 mmol/L (22-29); Chloride 95 mmol/L (98-107); Estimated GFR-MDRD Greater than 90; Glucose 109 mg/dL (70-105); Potassium 4.1 mmol/L (3.5-5.1); Sodium 137 mmol/L (136-145)
[2019-09-18 05:48] LABS: Band 4 % (5-11); Eosinophils 1 % (0-10); Hemoglobin 14.9 g/dL (12.0-16.0); Lymphocytes 12 % (21-51); MDiff Complete? YES; Macrocytosis SLIGHT = 6-15 cells (100X) (0-5/hpf); Mean Corpuscular HGB CONC 32.5 g/dL (32.0-36.0); Mean Corpuscular Hemoglobin 34.3 pg (27.0-31.0); Mean Platelet Volume 5.9 fL (7.4-10.4); Monocytes 6 % (0-10); Neutrophil 77 % (42-75); Platelet Count 348 thou/uL (130-400); Platelet Morphology Comment Appears Adequate; Red Blood Cell (RBC) Count 4.33 mill/uL (4.20-5.40); White Blood Cell (WBC) Count 9.4 thou/uL (4.8-10.8)
--- NOTE | 2019-09-18 08:47 | CT ---
CT head without contrast: Multiple axial tomograms obtained through the head without IV enhancement. INDICATIONS: Fall with injury to head COMPARISON: 09/11/2019 FINDINGS: Ventricles have normal size and position. No evidence of intracranial mass, hemorrhage, edema, or infarct. Visualized sinuses and mastoids appear clear. Bony calvarium appears unremarkable. IMPRESSION: No acute finding
[2019-09-18] MEDS: Amlodipine 5 MG TAB PO SCH (09:20)
[2019-09-18] MEDS: Enoxaparin Sodium 40 MG/0.4 ML SYRINGE SC SCH (10:21)
--- NOTE | 2019-09-18 13:45 | PDOC.HOSPP ---
- Subjective Encounter Date: 09/18/19 Encounter Time: 09:40 Subjective: Pt seen for followup re; acute hypoxic respiratory failure. fell today AM. - Objective Vital Signs & Weight: Vital Signs (12 hours) Temp Pulse Resp Pulse Ox 09/18/19 11:45 98.2 F 09/18/19 11:06 110 H 32 H 96 09/18/19 09:20 101 H 09/18/19 07:37 98.8 F 09/18/19 04:08 98.2 F 09/18/19 02:49 95 Weight Weight 171 lb 8.314 oz Most Recent Monitor Data Heart Rate from ECG 100 NIBP 171/79 NIBP BP-Mean 109 Respiration from ECG 18 SpO2 98 I&O: 09/17/19 09/18/19 09/19/19 06:59 06:59 06:59 Intake Total 422 770 Output Total 625 900 Balance -203 -130 Result Diagrams: 09/18/19 03:41 09/18/19 03:41 Additional Labs: labs and MARs reviewed by me EKG Reviewed by me: Yes (Tele: NSR) Hospitalist ROS - Review of Systems Cardiovascular: denies: chest pain, palpitations, orthopnea, paroxysmal noc. dyspnea, edema, light headedness Gastrointestinal: denies: nausea, vomiting, abdominal pain, diarrhea, constipation, melena, hematochezia Neurological: denies: weakness, numbness, incoordination, change in speech, confusion, seizures - Medication Medications: Active Medications Generic Name Dose Route Start Last Admin Trade Name Freq PRN Reason Stop Dose Admin Acetaminophen 650 mg 09/11/19 16:37 09/15/19 00:10 Tylenol PO 650 mg Q4H PRN Administration Headache/Fever/Mild Pain (1-3) Acetaminophen/Codeine Phosphate 2 tab 09/11/19 16:40 09/18/19 01:08 Tylenol #3 PO 2 tab Q6H PRN Administration Severe Pain (7-10) Albuterol/Ipratropium 3 ml 09/14/19 13:00 09/18/19 11:06 Duoneb NEB 3 ml [id number] TRAVIS Administration Alprazolam 0.25 mg 09/13/19 08:45 09/16/19 21:42 Xanax PO 0.25 mg BIDPRN PRN Administration Anxiety Amlodipine Besylate 5 mg 09/12/19 09:00 09/18/19 09:20 Norvasc PO 5 mg QAM TRAVIS Administration Clonazepam 1 mg 09/15/19 15:30 09/15/19 20:33 Klonopin PO 1 mg TIDPRN PRN Administration Anxiety Enoxaparin Sodium 40 mg 09/12/19 09:00 09/18/19 10:21 Lovenox SC 40 mg 0900 TRAVIS Administration Piperacillin Sod/Tazobactam 100 mls @ 200 mls/hr 09/17/19 18:00 09/18/19 06: 18 Sod 3.375 gm/ Sodium Chloride IVPB 100 mls Q6HR TRAVIS Administration Ketorolac Tromethamine 15 mg 09/17/19 19:12 09/18/19 10:19 Toradol IVP 09/22/19 19:13 15 mg Q6H PRN Administration Pain Melatonin 3 mg 09/11/19 23:24 09/16/19 22:32 Melatonin PO 3 mg HS PRN Administration Insomnia Metoclopramide HCl 10 mg 09/14/19 18:50 09/17/19 20:57 Reglan IVP 10 mg Q6H PRN Administration HEADACHE OR NAUSEA Nicotine 14 mg 09/11/19 17:00 09/17/19 17:36 Nicoderm Patch TD 14 mg Q24HR TRAVIS Administration Ondansetron HCl 4 mg 09/11/19 16:37 09/16/19 22:35 Zofran IVP 4 mg Q6H PRN Administration Nausea/Vomiting Sodium Chloride 10 ml 09/13/19 21:00 09/18/19 10:21 Flush - Normal Saline IVF 10 ml Q12HR TRAVIS Administration Tramadol HCl 100 mg 09/11/19 16:40 09/17/19 17:39 Ultram PO 100 mg Q6H PRN Administration Severe Pain (7-10) - Exam General - other findings: Obese Eye: anicteric sclera ENT: moist mucosa Neck: supple Heart: RRR Respiratory: CTAB Gastrointestinal: non-tender, non-distended Neurological: cranial nerve grossly intact, no weakness Psychiatric: normal affect, normal behavior Hosp A/P (1) Acute respiratory failure with hypoxia and hypercapnia Code(s): J96.01 - ACUTE RESPIRATORY FAILURE WITH HYPOXIA; J96.02 - ACUTE RESPIRATORY FAILURE WITH HYPERCAPNIA Status: Acute (2) Headache Code(s): R51 - HEADACHE Status: Acute (3) Urinary retention Code(s): R33.9 - RETENTION OF URINE, UNSPECIFIED Status: Acute (4) HTN (hypertension) Code(s): I10 - ESSENTIAL (PRIMARY) HYPERTENSION Status: Chronic (5) Tobacco abuse Code(s): Z72.0 - TOBACCO USE Status: Chronic (6) Metastatic primary lung cancer Code(s): C34.90 - MALIGNANT NEOPLASM OF UNSP PART OF UNSP BRONCHUS OR LUNG Status: Chronic (7) Hyperkalemia Code(s): E87.5 - HYPERKALEMIA Status: Resolved - Plan Check non-contrast CT brain to r/o bleed etc. Continue high-fklow oxygen. Continue nicotine patch. Increase amlodipine to 10 mg daily. Pt to follow up with her oncologist.
[2019-09-18] MEDS ORDERED: Amlodipine 5 MG TAB PO SCH (14:00)
[2019-09-18] MEDS ORDERED: guaiFENesin ER 600 MG TAB PO SCH (14:45)
--- NOTE | 2019-09-18 15:05 | PRG ---
DATE OF SERVICE: 09/18/2019 SERVICE: Pulmonary Medicine. INTERVAL HISTORY: The patient is doing poorly from respiratory standpoint. Oxygen requirements continue to up trend. She cannot provide any additional elements of the history. Overnight, she ended up getting a chest x-ray and CT of the head. Otherwise, there has been no interval change to her condition. PHYSICAL EXAMINATION: VITAL SIGNS: Afebrile, pulse 110, blood pressure 171/79, respirations 25, and saturation 96% currently on 45% oxygen delivered via BiPAP at 12/5. GENERAL: The patient is awake and alert. She has [id number]-[id number]-vverrvru respiratory distress. HEENT: Normocephalic and atraumatic. Sclerae white. Conjunctivae pink. Oral mucosa is moist without lesions. LUNGS: Very reduced air entry. There is a prolonged expiratory phase. No wheezing is appreciated. HEART: Normal rate. Regular. ABDOMEN: Soft, nontender, and nondistended. Bowel sounds are positive. MUSCULOSKELETAL: No cyanosis or clubbing. 1 to 2+ pitting is present in bilateral lower extremities. NEUROLOGIC: Grossly nonfocal. LABORATORY DATA: WBC 9.4, hemoglobin 14.9, and platelets 348,000. Basic metabolic profile is completely unremarkable except for a bicarb that is gently up trending to 36. Troponins unremarkable. IMAGIN. Chest x-ray demonstrates bilateral diffuse nodular infiltrates. 2. CT of the head yesterday demonstrates no evidence of acute intracranial abnormality. ASSESSMENT: 1. Acute hypoxic respiratory failure with previous resolution in subsequent recurrence. 2. Chronic obstructive pulmonary disease with acute exacerbation. 3. Adenocarcinoma, widely metastatic to the lung. 4. Metabolic encephalopathy, waxing and waning. DISCUSSION AND PLAN: The patient has completed a full course of antibiotics and she has had no significant improvement in her symptoms. I will put her on antifungal medication, and put out for respiratory virus panel. I will also put her on acyclovir in case we are dealing with a viral entity. We will continue supportive care with steroids. My suspicion is that we are dealing with a progressive metastatic process. If that is the case, none of these interventions will help, then the patient will go on develop increasing respiratory distress. In that event, she will never be a candidate for chemotherapy moving forward. We will continue our palliative care discussions through time, but ultimately, I do not think that we have much to. I do not think that we are going to find anything to intervene on. Currently, a bronchoscopy is out of the question as I would not be able to get her extubated. Critical Care will continue to follow closely. Job ID: [id number]
[2019-09-18] MEDS: Micafungin 150 MG in Sodium Chloride 0.9% 100 ML IVPB SCH (15:50)
[2019-09-18] MEDS: Acyclovir 400 mg Tablet PO SCH ×2 (17:49→20:14)
[2019-09-18] MEDS: Nicotine 14 MG PATCH TD SCH (17:53)
[2019-09-18] MEDS: guaiFENesin ER 600 MG TAB PO SCH (20:15)
[2019-09-18] MEDS: Metoclopramide HCl 10 MG/2 ML VIAL IVP PRN (22:15)
[2019-09-19] MEDS: Acyclovir 400 mg Tablet PO SCH ×4 (00:03→17:26)
[2019-09-19] MEDS: ALPRAZolam 0.25 MG TAB PO PRN (00:32)
[2019-09-19] MEDS: Ketorolac Tromethamine 30 MG/ML VIAL IVP PRN ×3 (03:46→17:36)
[2019-09-19] MEDS: Piperacillin/Tazobactam 3.375 GM in Sodium Chloride 0.9% 100 ML IVPB SCH ×2 (05:54→12:10)
[2019-09-19] MEDS: Amlodipine 10 MG TAB PO SCH (09:24)
[2019-09-19] MEDS: guaiFENesin ER 600 MG TAB PO SCH ×2 (09:25→21:07)
[2019-09-19] MEDS: Enoxaparin Sodium 40 MG/0.4 ML SYRINGE SC SCH (09:25)
--- NOTE | 2019-09-19 09:43 | PDOC.HOSPP ---
- Subjective Encounter Date: 09/19/19 Encounter Time: 12:10 Subjective: Patient with indigestion. SOB persistent and can't get off BiPAP. MON unchanged from admission. Patient distressed due to realizing breathing not likely to get better. States that she took some cocaine just prior to admission and wondering if that made things worse. - Objective Vital Signs & Weight: Vital Signs (12 hours) Temp Pulse Resp Pulse Ox 09/19/19 09:24 95 09/19/19 07:23 98.7 F 09/19/19 06:27 95 21 H 96 09/19/19 03:52 98.3 F 09/19/19 02:46 96 09/19/19 01:03 110 H 28 H 99 09/18/19 23:42 97.8 F Weight Weight 169 lb 12.095 oz Most Recent Monitor Data Heart Rate from ECG 94 NIBP 125/84 NIBP BP-Mean 97 Respiration from ECG 20 SpO2 96 I&O: 09/18/19 09/19/19 09/20/19 06:59 06:59 06:59 Intake Total 770 1040 Output Total 900 1600 Balance -130 -560 Result Diagrams: 09/18/19 03:41 09/18/19 03:41 Hospitalist ROS - Review of Systems Constitutional: denies: fever, chills Respiratory: reports: shortness of breath, SOB with excertion. denies: cough Cardiovascular: denies: chest pain, palpitations Gastrointestinal: reports: abdominal pain. denies: nausea, vomiting - Medication Medications: Active Medications Generic Name Dose Route Start Last Admin Trade Name Freq PRN Reason Stop Dose Admin Acetaminophen 650 mg 09/11/19 16:37 09/15/19 00:10 Tylenol PO 650 mg Q4H PRN Administration Headache/Fever/Mild Pain (1-3) Acetaminophen/Codeine Phosphate 2 tab 09/11/19 16:40 09/18/19 01:08 Tylenol #3 PO 2 tab Q6H PRN Administration Severe Pain (7-10) Acyclovir 400 mg 09/18/19 16:00 09/19/19 09:24 Zovirax PO 09/21/19 16:01 400 mg 5XD TRAVIS Administration Albuterol/Ipratropium 3 ml 09/14/19 13:00 09/19/19 06:27 Duoneb NEB 3 ml [id number] TRAVIS Administration Alprazolam 0.25 mg 09/13/19 08:45 09/19/19 00:32 Xanax PO 0.25 mg BIDPRN PRN Administration Anxiety Amlodipine Besylate 10 mg 09/19/19 09:00 09/19/19 09:24 Norvasc PO 10 mg DAILY TRAVIS Administration Clonazepam 1 mg 09/15/19 15:30 09/15/19 20:33 Klonopin PO 1 mg TIDPRN PRN Administration Anxiety Enoxaparin Sodium 40 mg 09/12/19 09:00 09/19/19 09:25 Lovenox SC 40 mg 0900 TRAVIS Administration Guaifenesin 600 mg 09/18/19 21:00 09/19/19 09:25 Mucinex PO 600 mg Q12HR TRAVIS Administration Piperacillin Sod/Tazobactam 100 mls @ 200 mls/hr 09/17/19 18:00 09/19/19 05: 54 Sod 3.375 gm/ Sodium Chloride IVPB 100 mls Q6HR TRAVIS Administration Micafungin Sodium 150 mg/ 100 mls @ 100 mls/hr 09/18/19 15:00 09/18/19 15:50 Sodium Chloride IVPB 100 mls Q24HR TRAVIS Administration Ketorolac Tromethamine 15 mg 09/17/19 19:12 09/19/19 09:23 Toradol IVP 09/22/19 19:13 15 mg Q6H PRN Administration Pain Melatonin 3 mg 09/11/19 23:24 09/16/19 22:32 Melatonin PO 3 mg HS PRN Administration Insomnia Metoclopramide HCl 10 mg 09/14/19 18:50 09/18/19 22:15 Reglan IVP 10 mg Q6H PRN Administration HEADACHE OR NAUSEA Nicotine 14 mg 09/11/19 17:00 09/18/19 17:53 Nicoderm Patch TD 14 mg Q24HR TRAVIS Administration Ondansetron HCl 4 mg 09/11/19 16:37 09/16/19 22:35 Zofran IVP 4 mg Q6H PRN Administration Nausea/Vomiting Sodium Chloride 10 ml 09/13/19 21:00 09/19/19 09:25 Flush - Normal Saline IVF 10 ml Q12HR TRAVIS Administration Tramadol HCl 100 mg 09/11/19 16:40 09/17/19 17:39 Ultram PO 100 mg Q6H PRN Administration Severe Pain (7-10) - Exam General Appearance: ill appearing General - other findings: in respiratory distress on BIPAP Heart: RRR, no murmur, no gallops, no rubs Respiratory - other findings: poor air movement bilateral lung tsang Gastrointestinal: soft, non-tender, non-distended, normal bowel sounds Psychiatric: normal behavior, A&O x 3 Psychiatric - other findings: anxious Hosp A/P (1) Acute respiratory failure with hypoxia Code(s): J96.01 - ACUTE RESPIRATORY FAILURE WITH HYPOXIA Status: Acute (2) Metastatic primary lung cancer Code(s): C34.90 - MALIGNANT NEOPLASM OF UNSP PART OF UNSP BRONCHUS OR LUNG Status: Chronic Plan: adenocarcinoma (3) Urinary retention Code(s): R33.9 - RETENTION OF URINE, UNSPECIFIED Status: Acute (4) HTN (hypertension) Code(s): I10 - ESSENTIAL (PRIMARY) HYPERTENSION Status: Chronic (5) Tobacco abuse Code(s): Z72.0 - TOBACCO USE Status: Chronic - Plan Worsening hypoxia, no improvement after adequate abx, still on Zosyn and Acyclovir added, suspect due to worsening lung cancer Palliative care Poor prognosis DVT Proph: Lovenox
[2019-09-19] MEDS ORDERED: Pantoprazole 40 MG VIAL IVP SCH (12:00)
[2019-09-19] MEDS: Acetaminophen/Codeine 30-300mg Tablet PO PRN ×2 (13:02→21:02)
[2019-09-19] MEDS ORDERED: predniSONE 20 MG TAB PO SCH (17:00)
--- NOTE | 2019-09-19 17:00 | PRG ---
DATE OF SERVICE: 09/19/2019 SERVICE: Pulmonary Service. INTERVAL HISTORY: The patient is doing fine from respiratory standpoint. Denies any current chest discomfort, nausea, or vomiting. That being said, she has come to the realization about where she is and would like to transition home under the care of hospice. The patient's family felt compelled to discuss the idea that she smoked crack cocaine the day before this whole event precipitated. Apparently, that was in an effort to end her suffering. She is now confessed surreptitious use of her benzodiazepines while being in the hospital. Either way, she would like to transition home with hospice and no longer wants to pursue aggressive interventions. PHYSICAL EXAMINATION: VITAL SIGNS: Afebrile, pulse 106, blood pressure 136/82, respirations 22, and saturation 99%, currently on 45% FiO2 delivered via BiPAP at 12/6. GENERAL: The patient is awake and alert, in no apparent distress. LUNGS: Good air entry bilaterally. There is a prolonged expiratory phase and wheezing present. Extensive rhonchi are noted. HEART: Normal rate, regular. ABDOMEN: Soft, nontender, and nondistended. Bowel sounds are positive. MUSCULOSKELETAL: No cyanosis or clubbing. There is no pitting in the bilateral lower extremities. NEUROLOGIC: Grossly nonfocal. LABORATORY DATA: Respiratory virus panel is unremarkable. ASSESSMENT: 1. Acute hypoxic respiratory failure. 2. Chronic obstructive pulmonary disease with acute exacerbation. 3. Adenocarcinoma, widely metastatic to the lung. 4. Metabolic encephalopathy, resolved today. 5. Polysubstance drug abuse including prescription benzodiazepine, narcotics, and crack cocaine. DISCUSSION AND PLAN: The patient is doing okay from respiratory standpoint today. We can continue to wean oxygen as tolerated. She would like to transition home with hospice. She is no longer wants to seek aggressive curative measures. As such, all interventions including antibiotics, antifungal medications, and antiviral medications will be interrupted. If we can arrange for her to have BiPAP at home with oxygen, that is what she would prefer to do. She understands that over the next couple of weeks to months, she will likely pass away from this underlying process. She also appreciates that if her oxygen saturations fall significantly, she could pass away much more abruptly. Critical Care will continue to follow while the patient remains in-house, but from my perspective, she is ready for transition home as soon as arrangements can be made to get her there safely. Job ID: [id number]
[2019-09-19] MEDS: Micafungin 150 MG in Sodium Chloride 0.9% 100 ML IVPB SCH (17:25)
[2019-09-19] MEDS ORDERED: hydrOXYzine 25 MG TAB PO PRN (19:50)
[2019-09-19] MEDS: Melatonin 3 MG TAB PO PRN (21:02)
[2019-09-19] MEDS: Nicotine 14 MG PATCH TD SCH (21:07)
[2019-09-20] MEDS: clonazePAM 1 MG TAB PO PRN ×2 (00:52→09:56)
[2019-09-20] MEDS: Ketorolac Tromethamine 30 MG/ML VIAL IVP PRN ×2 (00:52→09:55)
[2019-09-20] MEDS: Acetaminophen/Codeine 30-300mg Tablet PO PRN ×2 (06:17→15:47)
[2019-09-20] MEDS ORDERED: predniSONE 20 MG TAB PO SCH (08:00)
[2019-09-20] MEDS ORDERED: Pantoprazole 40 MG VIAL IVP SCH (09:00)
[2019-09-20] MEDS: Amlodipine 10 MG TAB PO SCH (09:51)
[2019-09-20] MEDS: Enoxaparin Sodium 40 MG/0.4 ML SYRINGE SC SCH (09:51)
[2019-09-20] MEDS: guaiFENesin ER 600 MG TAB PO SCH (09:51)
--- NOTE | 2019-09-20 11:47 | PDOC.PALPN ---
Palliative Progress Note - Subjective Transitioning to home with [facility]. Remains anxious and with respiratory compromise. Multiple family at bedside - Objective Vital Signs: Vital Signs - Most Recent Temp Pulse Resp BP Pulse Ox 98.2 F 114 H 33 H 113/56 L 100 09/20/19 07:11 09/20/19 09:51 09/20/19 06:43 09/16/19 17:20 09/20/19 07:48 - Physical Exam Constitutional: ill appearing, moderate distress HEENT: moist MMs, sclera anicteric Respiratory: diminished lung sound, labored respirations Cardiovascular: no significant murmur, RRR Gastrointestinal: continent, soft Musculoskeletal: edema present Neurology: moves all 4 limbs Skin: cap refill <2 seconds, bruising Psychiatric: A&O x 3 Deviation from normal: anxious - Assessment (1) Palliative care encounter Code(s): Z51.5 - ENCOUNTER FOR PALLIATIVE CARE Status: Acute (2) Acute respiratory failure with hypoxia Code(s): J96.01 - ACUTE RESPIRATORY FAILURE WITH HYPOXIA Status: Acute (3) Adenocarcinoma Code(s): C80.1 - MALIGNANT (PRIMARY) NEOPLASM, UNSPECIFIED Status: Acute (4) Metastatic primary lung cancer Code(s): C34.90 - MALIGNANT NEOPLASM OF UNSP PART OF UNSP BRONCHUS OR LUNG Status: Chronic - Plan Plan: Transition home with High flow O2 secondary to respiratory compromise with [facility]. Continued family support. Therapeutic listening and emotional support. Discussed strategies to ease breathing aside from BiPap support but to more specifically mitigate anxiety such as breathing techniques, pillow support, body position. [40] minutes spent on this encounter with >50% of the time in counseling and coordination of care. - ROS Constitutional: distress, weakness Eyes: other (Denies visual changes, reddness to eyes) ENT: other (denies difficulity swallowing, hearing changes) Respiratory: shortness of breath with extertion (cough) Cardiology: other (Denies chest pain, palpitations) Gastrointestinal: other (intermittant nausea related to headache) Musculoskeletal: arthritis/arthralgias, back pain Neurological: headache Psychological: anxiety, depression
[2019-09-20 15:30] VITALS: TEMP 99.5
--- NOTE | 2019-09-20 16:08 | PRG ---
DATE OF SERVICE: 09/20/2019 SERVICE: Pulmonary Medicine. INTERVAL HISTORY: The patient is doing poorly from respiratory standpoint. She requires BiPAP basically continuously. There are no overnight events or fevers. Ultimately, she is going to transition home with hospice today or tomorrow. She is waiting to see which hospice agency can set up a BiPAP for her to use at home. PHYSICAL EXAMINATION: VITAL SIGNS: Afebrile with a T-max of 99.5, pulse rate 113, blood pressure 129/76, and respirations are 31, and saturation 100% on 40% FiO2 delivered via BiPAP. GENERAL: The patient is awake and alert, in no apparent distress. LUNGS: Reduced air entry. No prolonged expiratory phase with a little bit of wheezing. Minimal dependent crackles and some rhonchi are present. HEART: Tachycardic. Regular. ABDOMEN: Soft, nontender, and nondistended. Bowel sounds are positive. MUSCULOSKELETAL: No cyanosis or clubbing. There is no pitting in the bilateral lower extremities noted. NEUROLOGIC: Grossly nonfocal. ASSESSMENT: 1. Acute hypoxic respiratory failure. 2. Chronic obstructive pulmonary disease with acute exacerbation. 3. Adenocarcinoma, widely metastatic to the lung. 4. Metabolic encephalopathy, stable. 5. Polysubstance drug abuse including overuse of prescription benzodiazepine, narcotics, and crack cocaine. ASSESSMENT: The patient is being transitioned out of the hospital to home today. She is doing this with the help of hospice agency. Once there, she will likely quite quickly. I will continue to follow in this location, but hopefully, she will be able to transition home per her wishes today. Job ID: [id number]
== END 2019-09-20 16:33 | disposition hospice, home (50) | DRG 180 ==
LOC: ERS 11:00 → 2NO 17:12 → ONC 09-13 16:08 → CCU 09-14 00:07 → IMCU/EMU 09-14 22:50 → ONC 09-16 14:52 → IMCU/EMU 09-16 17:41
PROVIDERS: ADMIT Internal Medicine; ATTEND Internal Medicine
PROC: 5A09357 Assistance with Respiratory Ventilation, Less than 24 Consecutive Hours, Continuous Positive Airway Pressure (ICD-10-PCS; principal; 2019-09-15)
PROC: 0T9B70Z Drainage of Bladder with Drainage Device, Via Natural or Artificial Opening (ICD-10-PCS; 2019-09-15)
DX: C34.90 Malignant neoplasm of unspecified part of unspecified bronchus or lung (principal); J96.21 Acute and chronic respiratory failure with hypoxia; G92 Toxic encephalopathy; J96.22 Acute and chronic respiratory failure with hypercapnia; J44.1 Chronic obstructive pulmonary disease with (acute) exacerbation; Z51.5 Encounter for palliative care; F17.210 Nicotine dependence, cigarettes, uncomplicated; F31.9 Bipolar disorder, unspecified; G43.909 Migraine, unspecified, not intractable, without status migrainosus; F19.10 Other psychoactive substance abuse, uncomplicated; M19.90 Unspecified osteoarthritis, unspecified site; F41.9 Anxiety disorder, unspecified; I10 Essential (primary) hypertension; T42.4X1A Poisoning by benzodiazepines, accidental (unintentional), initial encounter; E87.5 Hyperkalemia; R33.9 Retention of urine, unspecified; Z98.51 Tubal ligation status; Z90.49 Acquired absence of other specified parts of digestive tract; Z88.8 Allergy status to other drugs, medicaments and biological substances; Z79.82 Long term (current) use of aspirin; Z79.899 Other long term (current) drug therapy
CPT/HCPCS: 36415; 36416; 70450; 70553; 71045; 71275; 80048; 80053; 81003; 81015; 82150; 82805; 83605; 83690; 83735; 84484; 85025; 87633; 93005; 93010; 94640; 94660; 94760; 96361; 96365; 96375; A9579; C9113; J1100; J1110; J1200; J1650; J1885; J2248; J2270; J2405; J2543; J2765; J3490; J7512; J7611; J7620; Q9967